=== PATIENT | male | born 1960 | race Caucasian/White ===

== ENCOUNTER 2021-06-05 20:14 | Emergency (ER) | payer BC, SELFPAY ==
--- NOTE | ~2021-06-05 | CT_ITS ---
EXAMINATION: CT HEAD WITHOUT CONTRAST CLINICAL INFORMATION: Headache. COMPARISON: None TECHNIQUE: Contiguous axial imaging was performed from the skull base to vertex without intravenous administration of contrast. This CT examination was performed using dose optimization techniques as appropriate, variously including the following: *Automated exposure control *Adjustment of mA and/or kV according to patient size (this includes techniques or standardized protocols for targeted exams where dose is matched to indication/reason for exam; i.e. extremities or head) *Use of iterative reconstruction technique DLP: 808 mGy-cm FINDINGS: There is no evidence of acute intracranial hemorrhage or territorial infarction. No abnormal mass effect or midline shift is seen. Villagran to white matter differentiation is well preserved. No extra-axial fluid collections are identified. The ventricles are normal in size. There is no abnormal attenuation within the brain parenchyma. The osseous structures and soft tissues are normal. Mucoperiosteal thickening of the paranasal sinuses. The mastoids are clear. CT/CT head/brain wo con IMPRESSION: No acute intracranial pathology.
[2021-06-05 21:12] VITALS: BP 136/96; BP 144/91; PULSE 86; PULSE 94; RESP 16; TEMP 36.7; O2SAT 96; BMI 33.7
--- NOTE | 2021-06-05 23:25 | PC.NURSE ---
pt resting in bed with no distress at this time.
--- NOTE | 2021-06-05 23:39 | ED.HA ---
HPI - Headache General Chief Complaint: Headache Stated Complaint: migraine x4 days Time Seen by Provider: 06/05/21 23:30 History of Present Illness HPI Narrative: Patient is 61 years old presents today with headache that is been ongoing for the last 4 days. It is dull in discontinuous is not associated with any fever. Patient did have some nausea. No coughing or congestion or upper respiratory symptoms. Patient had COVID back in April. Headache is excruciating. No focal weakness. No changes in vision. Patient from home. Not on any medication currently. Related Data Previous Rx's Medication Instructions Recorded ibuprofen 400 mg tablet 400 mg PO Q6H PRN #20 tab 06/06/21 ondansetron HCl 4 mg tablet 4 mg PO Q8H PRN #10 tab 06/06/21 (Zofran) Allergies Allergy/AdvReac Type Severity Reaction Status Date / Time No Known Allergies Allergy Verified 06/05/21 21:18 Review of Systems Review of Systems: Positive headache No vomiting No nausea Positive generalized malaise Yes all other systems are reviewed and are negative [facility] Past Medical History Attestation statement: The following information was validated with the patient. Medical History (Updated 06/06/21 @ 01:03 by Marianna Lincoln MD) [facility] Social History Social History Alcohol intake: current Alcohol intake frequency: holidays/special occasions only Patient Tobacco Use Status: Never used Tobacco Use of substances other than those prescribed or required for medical reasons: No Advance Directives: No Advance Directives Information Provided: Yes Physical Exam Vital Signs: Vital Signs: Last Vital Signs Temp 98.2 F 06/05/21 23:57 Pulse 84 06/05/21 23:57 Resp 16 06/05/21 23:57 BP 110/61 06/05/21 23:57 Pulse Ox 98 06/05/21 23:57 Body Mass Index 33.7 Appearance: Alert. Oriented X3. No acute distress. Eyes: Pupils equal, round and reactive to light. ENT: Pharynx normal. Neck: Normal inspection. Neck supple. No lymph nodes noted. No crepitus CVS: Normal heart rate and rhythm. Pulses normal. Normal S1 and S2 Respiratory: No respiratory distress. Breath sounds normal. No Wheezing. No rales Abdomen: Soft and nontender. No rigidity. No distention. good BS x4 Skin: Skin warm and dry. Normal skin color. Normal skin turgor. Extremities: No lower extremity edema. Neurovascular intact to all extremities. No Lacerations. No Rash Neuro: Oriented X 3. No motor deficit. No sensory deficit. Moving all extermities. No slurred speech MDM - Headache MDM Narrative Medical decision making narrative: CT head was negative for any acute evidence of bleeding or mass. Patient's sed rate less than 20. He is 61 years old unlikely secondary to temporal arteritis. Patient given migraine treatment including Reglan, Toradol, Benadryl with good relief of patient's symptoms. Will discharge patient home. In stable condition. No fever no chills no signs of meningitis. Medical Records Attestation: I reviewed the patient's medical records. Lab Data Attestation: I reviewed the patient's lab results. Result diagrams: 06/05/21 23:53 06/05/21 23:53 Labs: Lab Results 06/05/21 06/05/21 06/05/21 Range/Units 23:53 23:53 23:53 WBC 5.1 (4.8-10.8) X10*3/uL RBC 4.99 (4.60-5.80) X10*6/uL Hgb 16.4 (14.0-18.0) g/dl Hct 46.6 (42-52) % MCV 93.4 (80-98) fL MCH 32.9 (27.0-33.0) pg MCHC 35.2 (31.0-36.0) g/dl RDW 12.1 (11.0-16.0) % Plt Count 203 (160-400) X10*3/uL MPV 8.8 L (9.4-12.4) fL Immature Gran % (Auto) 0.2 (0.0-0.4) % Neut % (Auto) 50.7 (45-73) % Lymph % (Auto) 35.2 (20-40) % Island % (Auto) 10.5 (2-11) % Eos % (Auto) 3.0 (0-4) % Baso % (Auto) 0.4 (0-2) % Lymph # (Auto) 1.8 (1.2-4.9) X10*3/uL Island # (Auto) 0.5 (0.1-1.2) X10*3/uL Eos # (Auto) 0.2 (0.0-0.4) X10*3/uL Baso # (Auto) 0.0 (0.0-0.2) X10*3/uL Abs Immat Gran (auto) 0.01 (0.00-0.03) X10*3/uL Absolute Neuts (auto) 2.6 (2.0-8.3) X10*3/uL Absolute Nucleated RBC 0.000 (0.0-0.012) X10*3/uL Nucleated RBC % (auto) 0.0 (0.0-0.2) /100WBC ESR 16 H (0-15) MM/HR Sodium 136 (135-145) mmol/L Potassium 4.5 (3.3-5.1) mmol/L Chloride 99 (96-108) mmol/L Carbon Dioxide 29 (22-29) mmol/L Anion Gap 13 (12-20) BUN 13 (9-16) mg/dL Creatinine 0.98 (0.5-1.4) mg/dL Estim Creat Clear Calc 98.0 Estimated GFR > 60 Random Glucose 101 (60-115) mg/dL Calcium 9.8 (8.4-10.2) mg/dL Total Bilirubin 0.8 (0.0-1.0) mg/dL Direct Bilirubin 0.3 (0.0-0.5) mg/dL AST 36 (5-37) U/L ALT 57 H (0-40) U/L Alkaline Phosphatase 64 (39-117) U/L Total Protein 7.9 (6.5-8.0) g/dL Albumin 4.5 (3.5-5.0) g/dL Discharge Plan Discharge Clinical Impression: Migraine Patient Disposition: Home, Self-Care Instructions: Migraine Headache (ED) Prescriptions: New ondansetron HCl [Zofran] 4 mg tablet 4 mg PO Q8H PRN (Reason: nausea and vomiting) Qty: 10 RF: 0 ibuprofen 400 mg tablet 400 mg PO Q6H PRN (Reason: pain) Qty: 20 RF: 0 Referrals: Physician,None [Primary Care Provider] - 2 days
[2021-06-05 23:57] VITALS: BP 110/61; PULSE 84; RESP 16; TEMP 36.8; O2SAT 98
[2021-06-05] MEDS: Metoclopramide HCl 10 MG/2 ML VIAL IVPUSH (23:57)
[2021-06-05] MEDS: diphenhydrAMINE HCL 50 MG/ML VIAL 25 MG IVPUSH (23:57)
[2021-06-05] MEDS: Ketorolac Tromethamine 30 MG/ML VIAL IVPUSH (23:57)
[2021-06-05] MEDS: ondansetron HCL 4 MG/2 ML VIAL IVPUSH (23:57)
[2021-06-06] LABS: Basophils Percent Auto 0.4 % (0-2); Eosinophils Absolute Auto 0.2 X10*3/uL (0.0-0.4); Hematocrit 46.6 % (42-52); Hemoglobin 16.4 g/dl (14.0-18.0); Imm Gran Abs Auto 0.01 X10*3/uL (0.00-0.03); Imm Gran Pct Auto 0.2 % (0.0-0.4); Lymphocytes Absolute Auto 1.8 X10*3/uL (1.2-4.9); Lymphocytes Percent Auto 35.2 % (20-40); MANUAL DIFF FLAG NO; Mean Corpuscular HGB Conc 35.2 g/dl (31.0-36.0); Mean Corpuscular Hemoglobin 32.9 pg (27.0-33.0); Mean Corpuscular Volume 93.4 fL (80-98); Mean Platelet Volume 8.8 fL (9.4-12.4); Monocytes Absolute Auto 0.5 X10*3/uL (0.1-1.2); Monocytes Percent Auto 10.5 % (2-11); Neutrophils Absolute Auto 2.6 X10*3/uL (2.0-8.3); Neutrophils Percent Auto 50.7 % (45-73); Platelet Count 203 X10*3/uL (160-400); Red Blood Count 4.99 X10*6/uL (4.60-5.80); Red Cell Distribution Width 12.1 % (11.0-16.0); White Blood Count 5.1 X10*3/uL (4.8-10.8)
[2021-06-06 00:23] LABS: Alanine Aminotransferase 57 U/L (0-40); Albumin Level 4.5 g/dL (3.5-5.0); Alkaline Phosphatase 64 U/L (39-117); Anion Gap 13 (12-20); Aspartate Amino Transferase 36 U/L (5-37); Bilirubin Direct 0.3 mg/dL (0.0-0.5); Bilirubin Total 0.8 mg/dL (0.0-1.0); Blood Urea Nitrogen 13 mg/dL (9-16); Calcium 9.8 mg/dL (8.4-10.2); Carbon Dioxide 29 mmol/L (22-29); Chloride 99 mmol/L (96-108); Estimated Glomerular Filt Rate > 60; Glucose Random 101 mg/dL (60-115); Potassium 4.5 mmol/L (3.3-5.1); Sodium 136 mmol/L (135-145); Total Protein 7.9 g/dL (6.5-8.0)
[2021-06-06 00:38] LABS: Erythrocyte Sedimentation Rate 16 MM/HR (0-15)
[2021-06-06 01:46] VITALS: BP 143/77; PULSE 82; RESP 16; TEMP 36.8; O2SAT 99
== END 2021-06-06 01:48 | disposition home or self-care (01) ==
PROVIDERS: Emergency Provider Emergency Medicine Emergency Medical Services
DX: G43.909 Migraine, unspecified, not intractable, without status migrainosus (principal); Z79.899 Other long term (current) drug therapy
CPT/HCPCS: 36415; 70450; 80048; 80076; 85025; 85652; 96374; 96375; 99284; J1200; J1885; J2405; J2765

== ENCOUNTER 2023-01-05 13:02 | Inpatient (IN) | payer BC, SELFPAY ==
--- NOTE | ~2023-01-05 | US_ITS ---
EXAMINATION: US ABDOMEN LIMITED CLINICAL INFORMATION: Right upper quadrant pain. COMPARISON: None available. TECHNIQUE: Real-time imaging of the right upper quadrant abdominal viscera. FINDINGS: PANCREAS: Obscured by overlying bowel gas LIVER: Normal. The liver is normal in size. The liver contour is normal. There is diffuse increased liver parenchymal echogenicity, consistent with hepatic steatosis. No focal hepatic lesion. There is no intrahepatic biliary duct dilatation seen. GALLBLADDER: Gallbladder is physiologically distended with echogenic bile with multiple gallstones noted. There is pericholecystic fluid. Positive sonographic White's sign. The gallbladder wall is thickened measuring 5 mm. COMMON BILE DUCT: Common bile duct is enlarged measuring 1.2 cm with a possible distal obstructing stone measuring 10 mm. RIGHT KIDNEY: Normal. No hydronephrosis. No renal calculi or focal parenchymal lesions. The kidney measures 13.4 cm in maximum dimension. FREE FLUID: None. US/US abdomen limited IMPRESSION: * Findings consistent with acute cholecystitis. * Common bile duct is enlarged measuring 1.2 cm with a possible distal obstructing stone measuring 10 mm. This may reflect choledocholithiasis.
--- NOTE | ~2023-01-05 | FL_ITS ---
EXAMINATION: XR FLUOROSCOPY WITH IMAGES CLINICAL INFORMATION: Cholecystitis. COMPARISON: Previous abdominal ultrasound 01/05/2023. TECHNIQUE: Fluoroscopy Supervised By: Amado. Fluoroscopy Time: 87 seconds. Cumulative Dose: 48 mGy-cm Images: 8. FINDINGS: T-tube cholangiogram performed through the cystic duct. There is intrahepatic and extrahepatic biliary duct dilatation. There is caliber change in the distal common bile duct in the head of the pancreas. There is an outpouching of the distal common bile duct just superior to the main pancreatic duct. There is question of a small filling defect that could represent a stone seen on image 6 only. Correlation with real-time fluoroscopy recommended. Visualized main pancreatic duct is normal. FL/FL guidance in OR IMPRESSION: Fluoroscopy guidance for cholangiogram. Dilated intra and extrahepatic bile ducts. Fixed narrowing of the distal common bile duct in the head of the pancreas and focal outpouching just superior to the main pancreatic duct. It is difficult to exclude a small filling defect in the distal common bile duct and correlation with real-time fluoroscopy recommended. Follow-up MR of the liver/pancreas with IV contrast and MRCP recommended.
[2023-01-05 13:05] VITALS: BP 118/75; PULSE 116; RESP 18; TEMP 36.6; O2SAT 98; BMI 33.7
--- NOTE | 2023-01-05 13:06 | ED.ABDPAIN ---
HPI - Abdominal Pain General Chief Complaint: Abdominal Pain <ANEESH Durham - Last Filed: 01/05/23 13:08> Stated Complaint: bad cramps, trouble breathing, no appetite <ANEESH Durham - Last Filed: 01/05/23 13:08> Time Seen by Provider: 01/05/23 16:17 <ANEESH Durham - Last Filed: 01/05/23 13:08> Source: patient, RN notes reviewed and old records reviewed <Pedro Pablo Bess - Last Filed: 01/05/23 19:39> Mode of arrival: ambulatory <Pedro Pablo Bess - Last Filed: 01/05/23 19:39> Limitations: no limitations <Pedro Pablo Bess - Last Filed: 01/05/23 19:39> History of Present Illness HPI narrative: 62-year-old male who denies any past medical history presents for evaluation of abdominal pain and nausea. Patient reports that she eating his lunch 3 days ago he vomited back up He reports since then he has had abdominal cramps, dry heaving and fatigue Currently he has 5/10 upper abdominal pain. Denies any history of abdominal surgeries He reports chills but no fevers at home He reports a positive COVID contact at work He denies any chest pain, shortness of breath but does endorse cough <Pedro Pablo Bess - Last Filed: 01/05/23 19:39> Related Data Home Medications: Previous Rx's Medication Instructions Recorded ibuprofen 400 mg tablet 400 mg PO Q6H PRN pain #20 tabs 06/06/21 ondansetron HCl 4 mg tablet 4 mg PO Q8H PRN nausea and 06/06/21 (Zofran) vomiting #10 tabs <ANEESH Durham - Last Filed: 01/05/23 13:08> Allergies/Adverse Reactions: Allergies Allergy/AdvReac Type Severity Reaction Status Date / Time No Known Allergies Allergy Verified 06/05/21 21:18 <ANEESH Durham Last Filed: 01/05/23 13:08> Review of Systems Constitutional: Reports as per HPI, Reports chills, Denies fever(s), Denies headache(s) and Reports malaise <Pedro Pablo Bess - Last Filed: 01/05/23 19:39> Denies headache(s) <Pedro Pablo Bess - Last Filed: 01/05/23 19:39> Cardiovascular: Denies chest pain and Denies dyspnea <Pedro Pablo Bess - Last Filed: 01/05/23 19:39> Respiratory: Reports cough and Denies dyspnea <Pedro Pablo Bess - Last Filed: 01/05/23 19:39> Gastrointestinal: Reports abdominal pain, Denies constipation, Reports nausea and Reports vomiting <Pedro Pablo Bess - Last Filed: 01/05/23 19:39> Genitourinary: Denies difficulty urinating and Denies dysuria <Pedro Pablo Bess - Last Filed: 01/05/23 19:39> Denies headache(s) and Denies focal weakness <Pedro Pablo Bess - Last Filed: 01/05/23 19:39> PMF Past Medical History Medical History: Medical History (Updated 01/05/23 @ 19:00 by Pedro Pablo Bess) Torn meniscus <ANEESH Durham - Last Filed: 01/05/23 13:08> Social History Social History: Social History Alcohol intake: never Patient Tobacco Use Status: Never used Tobacco Smoked in Last 30 Days: No Use of substances other than those prescribed or required for medical reasons: No Advance Directives: No Advance Directives Information Provided: Yes <ANEESH Durham - Last Filed: 01/05/23 13:08> Physical Exam ED Vital Signs: Vital Signs - 24 hr 01/05/23 13:05 01/05/23 18:07 01/05/23 19:18 Temperature 98 F 101.5 F H 98.3 F Pulse Rate 116 H 89 87 Respiratory Rate 18 16 18 Blood Pressure 118/75 136/79 140/78 H Pulse Oximetry 98 95 98 Oxygen Delivery Method Room Air Room Air Room Air BMI result Body Mass Index 33.7 <ANEESH Durham - Last Filed: 01/05/23 13:08> Vital Signs - 24 hr 01/05/23 13:05 01/05/23 18:07 05/03/23 19:18 Temperature 98 F 101.5 F H 98.3 F Pulse Rate 116 H 89 87 Respiratory Rate 18 16 18 Blood Pressure 118/75 136/79 140/78 H Pulse Oximetry 98 95 98 Oxygen Delivery Method Room Air Room Air Room Air BMI result Body Mass Index 33.7 <Pedro Pablo Last Filed: 01/05/23 19:39> Const General: healthy appearing, comfortable, no acute distress, alert and awake < Last Filed: 01/05/23 19:39> Nutritional Appearance: well nourished < Last Filed: 01/05/23 19:39> Orientation/consciousness: patient oriented x3 < Last Filed: 01/05/23 19:39> HENMT Head: Yes normocephalic and Yes atraumatic < Last Filed: 01/05/23 19:39> Eyes Eyelids: Yes eyelids normal < Last Filed: 01/05/23 19:39> Conjunctivae: conjunctivae normal < Last Filed: 01/05/23 19:39> Sclerae: sclerae normal < Last Filed: 01/05/23 19:39> Corneas: corneas normal < Last Filed: 01/05/23 19:39> Pupils: Equal, round and reactive pupils present < Last Filed: 01/05/23 19:39> EOM: EOMs intact bilaterally < Last Filed: 01/05/23 19:39> Neck Neck: Yes full ROM < Last Filed: 01/05/23 19:39> Resp Effort & Inspection: normal respiratory effort, able to speak in complete sentences, no audible wheezes and not labored < Last Filed: 01/05/23 19:39> Auscultation: clear to auscultation bilaterally < Last Filed: 01/05/23 19:39> Cardio Rate: regular rate <Pedro Pablo Bess Last Filed: 01/05/23 19:39> Rhythm: regular rhythm <Pedro Pablojuanita Bess Last Filed: 01/05/23 19:39> GI Inspection: No Abdominal wall edema and No distended <Pedro Pablojuanita Cervantes Last Filed: 01/05/23 19:39> Palpation (GI): Soft to palpation, not firm, Tenderness to palpation present (GI) in the RUQ (Diffusely tender but guarding only in the right upper quadrant), Guarding due to palpation present (GI) and not rigid <Pedro Pablo Bess - Last Filed: 01/05/23 19:39> Auscultation: normoactive bowel sounds <Pedro Pablojuanita Bess Last Filed: 01/05/23 19:39> Skin General skin exam: no rashes or lesions noted and elasticity normal <Pedro Pablo OAbram - Last Filed: 01/05/23 19:39> Neuro General: patient oriented x3 <Pedro Pablojuanita Bess Last Filed: 01/05/23 19:39> Cranial nerves: Yes Equal, round and reactive pupils present and Yes Bilaterally intact EOM present <Pedro Pablo Bess Last Filed: 01/05/23 19:39> Cognition (Neuro): normal cognition <Pedro Pablo Bess Last Filed: 01/05/23 19:39> Extrem Other: Moving all extremities well without any obvious deformities <Pedro Pablo Bess Last Filed: 01/05/23 19:39> Course Course Course Narrative: This is an RME: Additional HPI, ROS, PE not included below will be deferred to primary provider. 62-year-old male presents with fatigue, malaise, nausea, cramps in my gut , inability to sleep times a week and half, patient reports he had URI symptoms last week which have since resolved and now he is having abdominal symptoms. Denies difficulty urinating However states decreased urinary stream. PE benign. Patient slightly tachycardic however appears anxious. Plan at this time labs, urine, viral test <ANEESH Durham - Last Filed: 01/05/23 13:08> Reevaluation(s) Reevaluation #1: Patient spiked a temperature. I added blood cultures and a lactate as well as acetaminophen for the fever. Still awaiting ultrasound of the gallbladder <Pedro Pablo Cervantesy - Last Filed: 01/05/23 19:39> Time: 18:31 <Pedro Pablo GabiAntoniay - Last Filed: 01/05/23 19:39> Reevaluation #2: Gallbladder ultrasound shows acute cholecystitis. Discussed with the on-call surgeon, Dr. Vaughan who will admit the patient. I ordered Zosyn and IV fluids. <Pedro Pablo GabiEdithSpartanburg - Last Filed: 01/05/23 19:39> Time: 18:58 <Pedro Pablo AshleyMaximino - Last Filed: 01/05/23 19:39> Medical Decision Making Medical Decision Making MDM Narrative: 62-year-old male presents for evaluation of abdominal pain, nausea and vomiting after eating on Tuesday. His labs are remarkable for T bili of 1.9 and he is to the right upper quadrant. Will start with ultrasound of gallbladder. Patient reports his pain is currently under control so we will hold any analgesia at this time. He was given IV fluids and Zofran. She has no leukocytosis, is possible that he just has a GI virus <Pedro Pablo AshleyAntoniay - Last Filed: 01/05/23 19:39> Differential Diagnosis Cholelithiasis Acute cholecystitis Gastroenteritis Acute abdominal pain Viral syndrome <Pedro Pablo SchmidtSpartanburg - Last Filed: 01/05/23 19:39> Lab Data Result Diagrams: 01/05/23 13:14 01/05/23 13:15 <ANEESH Durham - Last Filed: 01/05/23 13:08> Labs: Lab Results 01/05/23 01/05/23 01/05/23 Range/Units 13:14 13:14 13:14 WBC 6.5 (4.8-10.8) X10*3/uL RBC 4.76 (4.60-5.80) X10*6/uL Hgb 15.3 (14.0-18.0) g/dl Hct 43.1 (42.0-52.0) % MCV 90.5 (80.0-98.0) fL MCH 32.1 (27.0-33.0) pg MCHC 35.5 (31.0-36.0) g/dl RDW 11.6 (11.0-16.0) % Plt Count 159 L (160-400) X10*3/uL MPV 9.0 L (9.4-12.4) fL Immature Gran % (Auto) 0.5 H (0.0-0.4) % Neut % (Auto) 87.6 H (45-73) % Lymph % (Auto) 6.5 L (20-40) % [place] % (Auto) 4.6 (2-11) % Eos % (Auto) 0.6 (0-4) % Baso % (Auto) 0.2 (0-2) % Lymph # (Auto) 0.4 L (1.2-4.9) X10*3/uL [place] # (Auto) 0.3 (0.1-1.2) X10*3/uL Eos # (Auto) 0.0 (0.0-0.4) X10*3/uL Baso # (Auto) 0.0 (0.0-0.2) X10*3/uL Abs Immat Gran (auto) 0.03 (0.00-0.03) X10*3/uL Absolute Neuts (auto) 5.7 (2.0-8.3) x10*3/uL Absolute Nucleated RBC 0.000 (0.0-0.012) X10*3/uL Nucleated RBC % (auto) 0.0 (0.0-0.2) /100WBC PT (10.0-13.1) SEC INR (0.9-1.1) APTT (26.0-36.4) SEC Sodium (135-145) mmol/L Potassium (3.3-5.1) mmol/L Chloride (96-108) mmol/L Carbon Dioxide (22-29) mmol/L Anion Gap (12-20) BUN (9-16) mg/dL Creatinine (0.5-1.4) mg/dL Estim Creat Clear Calc Estimated GFR Random Glucose (60-115) mg/dL Calcium (8.4-10.2) mg/dL Magnesium (1.6-2.6) mg/dL Total Bilirubin (0.0-1.0) mg/dL AST (5-37) U/L ALT (0-40) U/L Alkaline Phosphatase (39-117) U/L Total Protein (6.5-8.0) g/dL Albumin (3.5-5.0) g/dL Lipase (8-78) U/L Urine Color Urine Appearance Urine pH (5.0-9.0) Ur Specific [place] (1.005-1.025) Urine Protein (Neg-Trace) mg/dL Urine Glucose (UA) (Negative) mg/dL Urine Ketones (Negative) mg/dL Urine Blood (Negative) Urine Nitrite (Negative) Ur Leukocyte Esterase (Negative) Urine RBC (0-2) /HPF Urine WBC (0-5) /HPF Ur Squamous Epith Cells (0-2) /HPF Urine Bacteria (None Seen) Hyaline Casts (0-2) /LPF COVID-19 (LILLIANA) Negative (Negative) COVID-19 Clin Com See Note Influenza Type A (ANDRÉS) Negative (Negative) Influenza Type B (ANDRÉS) Negative (Negative) Influenza A & B Note See Note 01/05/23 01/05/23 01/05/23 Range/Units 13:15 18:39 18:59 WBC (4.8-10.8) X10*3/uL RBC (4.60-5.80) X10*6/uL Hgb (14.0-18.0) g/dl Hct (42.0-52.0) % MCV (80.0-98.0) fL MCH (27.0-33.0) pg MCHC (31.0-36.0) g/dl RDW (11.0-16.0) % Plt Count (160-400) X10*3/uL MPV (9.4-12.4) fL Immature Gran % (Auto) (0.0-0.4) % Neut % (Auto) (45-73) % Lymph % (Auto) (20-40) % [place] % (Auto) (2-11) % Eos % (Auto) (0-4) % Baso % (Auto) (0-2) % Lymph # (Auto) (1.2-4.9) X10*3/uL [place] # (Auto) (0.1-1.2) X10*3/uL Eos # (Auto) (0.0-0.4) X10*3/uL Baso # (Auto) (0.0-0.2) X10*3/uL Abs Immat Gran (auto) (0.00-0.03) X10*3/uL Absolute Neuts (auto) (2.0-8.3) x10*3/uL Absolute Nucleated RBC (0.0-0.012) X10*3/uL Nucleated RBC % (auto) (0.0-0.2) /100WBC PT 12.1 (10.0-13.1) SEC INR 1.1 (0.9-1.1) APTT 29.8 (26.0-36.4) SEC Sodium 136 (135-145) mmol/L Potassium 4.1 (3.3-5.1) mmol/L Chloride 103 (96-108) mmol/L Carbon Dioxide 24 (22-29) mmol/L Anion Gap 13 (12-20) BUN 24 H (9-16) mg/dL Creatinine 0.94 (0.5-1.4) mg/dL Estim Creat Clear Calc 100.8 Estimated GFR > 60 Random Glucose 139 H (60-115) mg/dL Calcium 8.5 D (8.4-10.2) mg/dL Magnesium 2.3 (1.6-2.6) mg/dL Total Bilirubin 1.9 H (0.0-1.0) mg/dL AST 22 (5-37) U/L ALT 25 (0-40) U/L Alkaline Phosphatase 74 (39-117) U/L Total Protein 6.9 (6.5-8.0) g/dL Albumin 3.8 (3.5-5.0) g/dL Lipase 13 (8-78) U/L Urine Color Dark Yellow Urine Appearance Clear Urine pH 7.5 (5.0-9.0) Ur Specific [place] 1.025 (1.005-1.025) Urine Protein 100 (2+) H (Neg-Trace) mg/dL Urine Glucose (UA) Negative (Negative) mg/dL Urine Ketones Trace (Negative) mg/dL Urine Blood Negative (Negative) Urine Nitrite Negative (Negative) Ur Leukocyte Esterase Trace H (Negative) Urine RBC 3-5 H (0-2) /HPF Urine WBC 0-5 (0-5) /HPF Ur Squamous Epith Cells 0-2 (0-2) /HPF Urine Bacteria None Seen (None Seen) Hyaline Casts 0-2 (0-2) /LPF COVID-19 (LILLIANA) (Negative) COVID-19 Clin Com Influenza Type A (ANDRÉS) (Negative) Influenza Type B (ANDRÉS) (Negative) Influenza A & B Note <ANEESH Durham - Last Filed: 01/05/23 13:08> Lab Results 01/05/23 01/05/23 01/05/23 Range/Units 13:14 13:14 13:14 WBC 6.5 (4.8-10.8) X10*3/uL RBC 4.76 (4.60-5.80) X10*6/uL Hgb 15.3 (14.0-18.0) g/dl Hct 43.1 (42.0-52.0) % MCV 90.5 (80.0-98.0) fL MCH 32.1 (27.0-33.0) pg MCHC 35.5 (31.0-36.0) g/dl RDW 11.6 (11.0-16.0) % Plt Count 159 L (160-400) X10*3/uL MPV 9.0 L (9.4-12.4) fL Immature Gran % (Auto) 0.5 H (0.0-0.4) % Neut % (Auto) 87.6 H (45-73) % Lymph % (Auto) 6.5 L (20-40) % [place] % (Auto) 4.6 (2-11) % Eos % (Auto) 0.6 (0-4) % Baso % (Auto) 0.2 (0-2) % Lymph # (Auto) 0.4 L (1.2-4.9) X10*3/uL [place] # (Auto) 0.3 (0.1-1.2) X10*3/uL Eos # (Auto) 0.0 (0.0-0.4) X10*3/uL Baso # (Auto) 0.0 (0.0-0.2) X10*3/uL Abs Immat Gran (auto) 0.03 (0.00-0.03) X10*3/uL Absolute Neuts (auto) 5.7 (2.0-8.3) x10*3/uL Absolute Nucleated RBC 0.000 (0.0-0.012) X10*3/uL Nucleated RBC % (auto) 0.0 (0.0-0.2) /100WBC PT (10.0-13.1) SEC INR (0.9-1.1) APTT (26.0-36.4) SEC Sodium (135-145) mmol/L Potassium (3.3-5.1) mmol/L Chloride (96-108) mmol/L Carbon Dioxide (22-29) mmol/L Anion Gap (12-20) BUN (9-16) mg/dL Creatinine (0.5-1.4) mg/dL Estim Creat Clear Calc Estimated GFR Random Glucose (60-115) mg/dL Calcium (8.4-10.2) mg/dL Magnesium (1.6-2.6) mg/dL Total Bilirubin (0.0-1.0) mg/dL AST (5-37) U/L ALT (0-40) U/L Alkaline Phosphatase (39-117) U/L Total Protein (6.5-8.0) g/dL Albumin (3.5-5.0) g/dL Lipase (8-78) U/L Urine Color Urine Appearance Urine pH (5.0-9.0) Ur Specific [place] (1.005-1.025) Urine Protein (Neg-Trace) mg/dL Urine Glucose (UA) (Negative) mg/dL Urine Ketones (Negative) mg/dL Urine Blood (Negative) Urine Nitrite (Negative) Ur Leukocyte Esterase (Negative) Urine RBC (0-2) /HPF Urine WBC (0-5) /HPF Ur Squamous Epith Cells (0-2) /HPF Urine Bacteria (None Seen) Hyaline Casts (0-2) /LPF COVID-19 (LILLIANA) Negative (Negative) COVID-19 Clin Com See Note Influenza Type A (ANDRÉS) Negative (Negative) Influenza Type B (ANDRÉS) Negative (Negative) Influenza A & B Note See Note 01/05/23 01/05/23 01/05/23 Range/Units 13:15 18:39 18:59 WBC (4.8-10.8) X10*3/uL RBC (4.60-5.80) X10*6/uL Hgb (14.0-18.0) g/dl Hct (42.0-52.0) % MCV (80.0-98.0) fL MCH (27.0-33.0) pg MCHC (31.0-36.0) g/dl RDW (11.0-16.0) % Plt Count (160-400) X10*3/uL MPV (9.4-12.4) fL Immature Gran % (Auto) (0.0-0.4) % Neut % (Auto) (45-73) % Lymph % (Auto) (20-40) % [place] % (Auto) (2-11) % Eos % (Auto) (0-4) % Baso % (Auto) (0-2) % Lymph # (Auto) (1.2-4.9) X10*3/uL [place] # (Auto) (0.1-1.2) X10*3/uL Eos # (Auto) (0.0-0.4) X10*3/uL Baso # (Auto) (0.0-0.2) X10*3/uL Abs Immat Gran (auto) (0.00-0.03) X10*3/uL Absolute Neuts (auto) (2.0-8.3) x10*3/uL Absolute Nucleated RBC (0.0-0.012) X10*3/uL Nucleated RBC % (auto) (0.0-0.2) /100WBC PT 12.1 (10.0-13.1) SEC INR 1.1 (0.9-1.1) APTT 29.8 (26.0-36.4) SEC Sodium 136 (135-145) mmol/L Potassium 4.1 (3.3-5.1) mmol/L Chloride 103 (96-108) mmol/L Carbon Dioxide 24 (22-29) mmol/L Anion Gap 13 (12-20) BUN 24 H (9-16) mg/dL Creatinine 0.94 (0.5-1.4) mg/dL Estim Creat Clear Calc 100.8 Estimated GFR > 60 Random Glucose 139 H (60-115) mg/dL Calcium 8.5 D (8.4-10.2) mg/dL Magnesium 2.3 (1.6-2.6) mg/dL Total Bilirubin 1.9 H (0.0-1.0) mg/dL AST 22 (5-37) U/L ALT 25 (0-40) U/L Alkaline Phosphatase 74 (39-117) U/L Total Protein 6.9 (6.5-8.0) g/dL Albumin 3.8 (3.5-5.0) g/dL Lipase 13 (8-78) U/L Urine Color Dark Yellow Urine Appearance Clear Urine pH 7.5 (5.0-9.0) Ur Specific [place] 1.025 (1.005-1.025) Urine Protein 100 (2+) H (Neg-Trace) mg/dL Urine Glucose (UA) Negative (Negative) mg/dL Urine Ketones Trace (Negative) mg/dL Urine Blood Negative (Negative) Urine Nitrite Negative (Negative) Ur Leukocyte Esterase Trace H (Negative) Urine RBC 3-5 H (0-2) /HPF Urine WBC 0-5 (0-5) /HPF Ur Squamous Epith Cells 0-2 (0-2) /HPF Urine Bacteria None Seen (None Seen) Hyaline Casts 0-2 (0-2) /LPF COVID-19 (LILLIANA) (Negative) COVID-19 Clin Com Influenza Type A (ANDRÉS) (Negative) Influenza Type B (ANDRÉS) (Negative) Influenza A & B Note <Pedro Pablo Bess - Last Filed: 01/05/23 19:39> Medications Administered Generic Name Dose Route Start Last Admin Trade Name Freq PRN Reason Stop Dose Admin Sodium Chloride 1,000 mls @ 999 mls/hr 01/05/23 19:00 01/05/23 19:29 Ns IV 01/05/23 20:00 999 mls/hr .Q1H1M NIKO Administration Discontinued Medications Generic Name Dose Route Start Last Admin Trade Name Freq PRN Reason Stop Dose Admin Acetaminophen 975 mg 01/05/23 18:26 01/05/23 18:36 Acetaminophen 325 Mg Tablet PO 01/05/23 18:27 975 mg ONCE ONE Administration Sodium Chloride 1,000 mls @ 999 mls/hr 01/05/23 16:30 01/05/23 18:35 Ns IV 01/05/23 17:30 Infused .Q1H1M NIKO Infusion Piperacillin Sod/Tazobactam 50 mls @ 100 mls/hr 01/05/23 18:45 01/05/23 19:28 Sod 3.375 gm/ Sodium Chloride IV 01/05/23 19:14 100 mls/hr ONCE ONE Administration Ondansetron HCl 4 mg 01/05/23 16:26 01/05/23 17:00 Ondansetron Hcl 4 Mg/2 Ml Vial IVPUSH 01/05/23 16:27 4 mg ONCE ONE Administration <ANEESH Durham - Last Filed: 01/05/23 13:08> Medications Administered Generic Name Dose Route Start Last Admin Trade Name Freq PRN Reason Stop Dose Admin Sodium Chloride 1,000 mls @ 999 mls/hr 01/05/23 19:00 01/05/23 19:29 Ns IV 01/05/23 20:00 999 mls/hr .Q1H1M NIKO Administration Discontinued Medications Generic Name Dose Route Start Last Admin Trade Name Freq PRN Reason Stop Dose Admin Acetaminophen 975 mg 01/05/23 18:26 01/05/23 18:36 Acetaminophen 325 Mg Tablet PO 01/05/23 18:27 975 mg ONCE ONE Administration Sodium Chloride 1,000 mls @ 999 mls/hr 01/05/23 16:30 01/05/23 18:35 Ns IV 01/05/23 17:30 Infused .Q1H1M NIKO Infusion Piperacillin Sod/Tazobactam 50 mls @ 100 mls/hr 01/05/23 18:45 01/05/23 19:28 Sod 3.375 gm/ Sodium Chloride IV 01/05/23 19:14 100 mls/hr ONCE ONE Administration Ondansetron HCl 4 mg 01/05/23 16:26 01/05/23 17:00 Ondansetron Hcl 4 Mg/2 Ml Vial IVPUSH 01/05/23 16:27 4 mg ONCE ONE Administration <Pedro Pablo Bess - Last Filed: 01/05/23 19:39> Discharge Plan Discharge Clinical Impression: Acute calculous cholecystitis <ANEESH Durham - Last Filed: 01/05/23 13:08> Patient Disposition: Admitted As Inpatient <ANEESH Durham - Last Filed: 01/05/23 13:08>
[2023-01-05 13:21] LABS: MANUAL DIFF FLAG NO
[2023-01-05 13:23] LABS: Basophils Percent Auto 0.2 % (0-2); Eosinophils Percent Auto 0.6 % (0-4); Hematocrit 43.1 % (42.0-52.0); Hemoglobin 15.3 g/dl (14.0-18.0); Imm Gran Abs Auto 0.03 X10*3/uL (0.00-0.03); Imm Gran Pct Auto 0.5 % (0.0-0.4); Lymphocytes Absolute Auto 0.4 X10*3/uL (1.2-4.9); Lymphocytes Percent Auto 6.5 % (20-40); Mean Corpuscular HGB Conc 35.5 g/dl (31.0-36.0); Mean Corpuscular Hemoglobin 32.1 pg (27.0-33.0); Mean Corpuscular Volume 90.5 fL (80.0-98.0); Monocytes Absolute Auto 0.3 X10*3/uL (0.1-1.2); Monocytes Percent Auto 4.6 % (2-11); Neutrophils Absolute Auto 5.7 x10*3/uL (2.0-8.3); Neutrophils Percent Auto 87.6 % (45-73); Platelet Count 159 X10*3/uL (160-400); Red Blood Count 4.76 X10*6/uL (4.60-5.80); Red Cell Distribution Width 11.6 % (11.0-16.0); White Blood Count 6.5 X10*3/uL (4.8-10.8)
[2023-01-05 13:49] LABS: Alanine Aminotransferase 25 U/L (0-40); Albumin Level 3.8 g/dL (3.5-5.0); Alkaline Phosphatase 74 U/L (39-117); Anion Gap 13 (12-20); Aspartate Amino Transferase 22 U/L (5-37); Bilirubin Total 1.9 mg/dL (0.0-1.0); Blood Urea Nitrogen 24 mg/dL (9-16); Calcium 8.5 mg/dL (8.4-10.2); Carbon Dioxide 24 mmol/L (22-29); Chloride 103 mmol/L (96-108); Creatinine Clr Calc Pharmacy 100.8; Estimated Glomerular Filt Rate > 60; Glucose Random 139 mg/dL (60-115); Lipase 13 U/L (8-78); Magnesium 2.3 mg/dL (1.6-2.6); Potassium 4.1 mmol/L (3.3-5.1); Sodium 136 mmol/L (135-145); Total Protein 6.9 g/dL (6.5-8.0)
[2023-01-05 13:50] LABS: COVID-19 Test Negative (Negative); IDNOW Serial# 08D9AD1C
[2023-01-05 14:05] LABS: IDNOW Serial# 55D5AD1C; Influenza A Negative (Negative); Influenza B2 Negative (Negative)
[2023-01-05] MEDS: ondansetron HCL 4 MG/2 ML VIAL IVPUSH (17:00)
[2023-01-05] MEDS: 0.9 % Sodium Chloride 1,000 ML 999 ML IV ×2 (17:00→19:29)
--- NOTE | 2023-01-05 17:26 | PC.NURSE ---
Patient complaining of abdominal pain that started tuesday after lunch. Patient states that he hasn't eaten since tuesday due to the pain. Patient winces when right upper quadrant is palpated. Patient got IV and fluids are being administered now and patient was medicated with antinausea medication.
[2023-01-05 18:07] VITALS: BP 136/79; PULSE 89; RESP 16; TEMP 38.6; O2SAT 95
[2023-01-05] MEDS: Acetaminophen 325 MG TABLET 975 MG PO (18:36)
[2023-01-05 18:46] LABS: Appearance Urine Clear; Color Urine Dark Yellow; Glucose Urine UA Negative (Negative); Leukocyte Esterase Urine Trace (Negative); Nitrite Urine Negative (Negative); PH 7.5 (5.0-9.0); Specific Gravity - Urine 1.025 (1.005-1.025); UMIC TRIGGER UACC YES; Urine Blood Negative (Negative); Urine Ketones Trace mg/dL (Negative); Urine Protein 100 (2+) mg/dL (Neg-Trace)
[2023-01-05 18:51] LABS: Bacteria Urine None Seen (None Seen); Hyaline Casts Urine 0-2 /LPF (0-2); Squamous Epithelial Cell Urine 0-2 /HPF (0-2); WBC Urine 0-5 /HPF (0-5)
--- NOTE | 2023-01-05 19:00 | ECG_ITS ---
Test Reason : ABD PAIN Blood Pressure : / mmHG Vent. Rate : 087 BPM Atrial Rate : 087 BPM P-R Int : 176 ms QRS Dur : 078 ms QT Int : 354 ms P-R-T Axes : 056 -01 -06 degrees QTc Int : 425 ms Normal sinus rhythm Normal ECG No previous ECGs available Referred By: Pedro Pablo Bess Electronically Signed By:OLIMPIA SANTIAGO MD
[2023-01-05 19:18] VITALS: BP 140/78; PULSE 87; RESP 18; TEMP 36.8; O2SAT 98
[2023-01-05 19:25] LABS: INTERNATIONAL NORM RATIO 1.1 (0.9-1.1); Prothrombin Time 12.1 SEC (10.0-13.1)
[2023-01-05 19:28] LABS: Partial Thromboplastin Time 29.8 SEC (26.0-36.4)
[2023-01-05] MEDS: Piperacillin Sodium/Tazobactam 3.375 GM in 0.9 % Sodium Chloride 50 ML IV (19:28)
[2023-01-05 19:40] LABS: Lactic Acid 1.4 mmol/L (0.5-2.0)
--- NOTE | 2023-01-05 19:56 | PHA.MEDREC ---
Pharmacy Consult ? Medication Reconciliation Pharmacy has completed the medication reconciliation.
[2023-01-05] MEDS: 0.9 % Sodium Chloride 1,000 ML 100 ML IVCONT (20:38)
--- NOTE | 2023-01-05 22:29 | PC.NURSE ---
Attempted to call report at 22:29. [employer] Consultant reported nurse is not there yet. Stated she will call back when the nurse gets in. Pt will be transported within a half hour if no call has been returned.
[2023-01-05 23:44] VITALS: BP 121/59; PULSE 98; RESP 20; TEMP 38.5; O2SAT 95
[2023-01-06] VITALS (13 sets, daily range): BP systolic 117–166; BP diastolic 56–79; PULSE 69–95; RESP 16–25; TEMP 37.1–39.1; O2SAT 93–100; BMI 33.5
[2023-01-06] MEDS: Piperacillin Sodium/Tazobactam 3.375 GM in 0.9 % Sodium Chloride 50 ML IV ×4 (01:22→18:15)
--- NOTE | 2023-01-06 06:54 | P.HPGS_ITS ---
History of Present Illness History of Present Illness Date of Service: 01/06/23 Chief complaint: Abd pain Narrative: Pablo Zuniga is a 62 year old male who has been having abdo pain and nause adn vomiting for the last 4 days. Last week he wasnt feeling well- feeling more run down no fever no GI issues but missed 2 days of work. Then tuesday after eating some chicken for lunch he bagan to feel ill, abdo pain and then some significant dry heaves and vomiting. This went on until Tuesday and he felt dehydrated and tried drinking some gatorade. Pain got a little better and nause and tried to see if he would get better at home but then by yesterday felt week and dehydrated so came to the ER. w/u here with tender RUQ, elevated tbili at 1.9 normal wbc but temp was 101. U/s showed signs of cholecystitis with thickened GB and dilated duct to 1.6cm. Pt being admitted for cholecystitis and choledocholithiasis. Review of Systems Review of Systems: Yes all other systems are reviewed and are negative [facility] Past Medical History Medical History (Updated 01/05/23 @ 19:00 by Pedro Pablo Bess) [facility] Social History Social History Household Members: None Housing: Apartment Do you presently have visiting nurse or other home services: No Alcohol intake: never Patient Tobacco Use Status: Never used Tobacco Smoked in Last 30 Days: No Second Hand Smoke Exposure: No Use of substances other than those prescribed or required for medical reasons: No Currently Displaying Signs/Symptoms of Drug Intoxication Withdrawal: No Any prior treatment program specific to substance use: No Have you been hit, kicked, punched, or otherwise hurt by someone within the past year? If so, by whom?: No Do you feel safe in your current relationship?: No Current Relationship Is there a partner from a previous relationship who is making you feel unsafe now?: No Are you made to feel afraid or neglected: No Advance Directives: No Advance Directives Information Provided: Yes Advance Directives on File: No Do you have thoughts of harming others: None Do you have a plan to hurt others: No Plan Recently lost weight without trying: No Eating poorly because of decreased appetite: Yes Nutrition Risks: No Nutritional Risk Poor oral hygiene: No Travel History Ebola Risk: Travel/Contact With Anyone From Affected Area/s: No Meds Allergies Allergy/AdvReac Type Severity Reaction Status Date / Time No Known Allergies Allergy Verified 06/05/21 21:18 Active Medications: Current Medications Sodium Chloride (Ns) 1,000 mls @ 100 mls/hr IVCONT .Q10H [facility] Last Infusion: 01/06/23 06:35 Dose: 0 mls/hr Piperacillin Sod/Tazobactam (Sod 3.375 gm/ Sodium Chloride) 50 mls @ 100 mls/hr IV Q6H [facility] Last Admin: 01/06/23 06:32 Dose: 100 mls/hr Morphine Sulfate (Morphine Sulfate 4 Mg/Ml Cartridge) 3 mg IVPUSH 6XD PRN; Protocol PRN Reason: Pain, Severe (Pain Scale 7-10) Ondansetron HCl (Ondansetron Hcl 4 Mg/2 Ml Vial) 4 mg IVPUSH Q8H PRN PRN Reason: Nausea and Vomiting Sodium Chloride (0.9 % Sodium Chloride Flush 3 Ml Syringe) 3 ml IVFLUSH QSHIFT [facility] Last Admin: 01/06/23 06:53 Dose: Not Given Home Medications Medication Instructions Recorded Confirmed Last Taken Type No Known Home Meds 01/05/23 01/05/23 Unknown History Physical Exam Vital Signs: Vital Signs: Last Vital Signs Temp 99.7 F 01/06/23 03:54 Pulse 90 01/06/23 03:54 Resp 18 01/06/23 03:54 BP 126/60 01/06/23 03:54 Pulse Ox 93 01/06/23 03:54 O2 Del Method Room Air 01/06/23 03:54 BMI result Body Mass Index 33.5 Const: General: cooperative and in distress mild Nutritional Appearance: well nourished Orientation/consciousness: oriented to person, oriented to place and oriented to time HEENT: Other: nonicteric Head: Yes normal to inspection Resp: Effort & Inspection: normal respiratory effort Auscultation: clear to auscultation bilaterally Cardio: Rate: regular rate Rhythm: regular rhythm GI: Other: abdo large and round soft, guarding in ruq area no peritoneal signs active bowel sounds : General: Yes no CVA tenderness Back/Spine/Pelvis: Back: no CVA tenderness Skin: General skin exam: no jaundice Neuro: General: oriented to person, oriented to place and oriented to time Extrem: General: Yes normal to inspection Results Results Labs: Short CBC 01/05/23 Range/Units 13:14 WBC 6.5 (4.8-10.8) X10*3/uL Hgb 15.3 (14.0-18.0) g/dl Hct 43.1 (42.0-52.0) % Plt Count 159 L (160-400) X10*3/uL BMP 01/05/23 13:15 Sodium 136 Potassium 4.1 Chloride 103 Carbon Dioxide 24 BUN 24 H Creatinine 0.94 Calcium 8.5 D Liver Function 01/05/23 Range/Units 13:15 Total Bilirubin 1.9 H (0.0-1.0) mg/dL AST 22 (5-37) U/L ALT 25 (0-40) U/L Alkaline Phosphatase 74 (39-117) U/L Albumin 3.8 (3.5-5.0) g/dL Urine 01/05/23 Range/Units 18:39 Urine Color Dark Yellow Urine Appearance Clear Urine pH 7.5 (5.0-9.0) Ur Specific [place] 1.025 (1.005-1.025) Urine Protein 100 (2+) H (Neg-Trace) mg/dL Urine Glucose (UA) Negative (Negative) mg/dL Abdominal ultrasound report/results: report reviewed Assessment and Plan (1) Acute calculous cholecystitis: Status: Acute Plan 62 year old male with probable cholecystitis but possible CBD stone - duct large on imaging and eleated tbili - plan MRCP for today. keep npo, iv hydration, repeat labs in am cover with iv Zosyn if CBD stone then get ERCP and then eventual lap hemant Pt understands and agrees with the plan Time Spent With Patient Time: Total time managing care of this patient today ____ minutes. Quality Stroke Does the patient have a stroke diagnosis?: No VTE Prior VTE?: No VTE Risk Level:: Surgical - low VTE Device Contraindication: N/A - Device Ordered VTE Drug Contraindication: N/A - Med Ordered Procedures Date of Service Date of Service: 01/06/23
[2023-01-06 06:55] LABS: Hematocrit 36.7 % (42.0-52.0); Hemoglobin 12.8 g/dl (14.0-18.0); Mean Corpuscular HGB Conc 34.9 g/dl (31.0-36.0); Mean Corpuscular Hemoglobin 32.2 pg (27.0-33.0); Mean Corpuscular Volume 92.4 fL (80.0-98.0); Mean Platelet Volume 9.8 fL (9.4-12.4); Platelet Count 130 X10*3/uL (160-400); Red Blood Count 3.97 X10*6/uL (4.60-5.80); Red Cell Distribution Width 11.6 % (11.0-16.0); White Blood Count 7.4 X10*3/uL (4.8-10.8)
[2023-01-06 07:28] LABS: Alanine Aminotransferase 33 U/L (0-40); Alkaline Phosphatase 68 U/L (39-117); Anion Gap 14 (12-20); Aspartate Amino Transferase 30 U/L (5-37); Bilirubin Total 1.8 mg/dL (0.0-1.0); Blood Urea Nitrogen 19 mg/dL (9-16); Calcium 7.4 mg/dL (8.4-10.2); Carbon Dioxide 21 mmol/L (22-29); Chloride 106 mmol/L (96-108); Creatinine Clr Calc Pharmacy 103.9; Estimated Glomerular Filt Rate > 60; Glucose Random 123 mg/dL (60-115); Potassium 3.7 mmol/L (3.3-5.1); Sodium 137 mmol/L (135-145); Total Protein 5.4 g/dL (6.5-8.0)
--- NOTE | 2023-01-06 11:13 | HO.ANESPROP2 ---
[facility] Active Problems Active Problems: All Active Problems (Updated 01/05/23 @ 19:00 by Pedro Pablo Bess) Acute calculous cholecystitis (Acute) Past Medical History Medical History (Updated 01/05/23 @ 19:00 by Pedro Pablo Bess) Sania blanton Family History Family history of problems with anesthesia: No Surgical History History of Problems with Anesthesia: No Social History Social History Household Members: None Housing: Apartment Do you presently have visiting nurse or other home services: No Alcohol intake: never Patient Tobacco Use Status: Never used Tobacco Smoked in Last 30 Days: No Second Hand Smoke Exposure: No Use of substances other than those prescribed or required for medical reasons: No Currently Displaying Signs/Symptoms of Drug Intoxication Withdrawal: No Any prior treatment program specific to substance use: No Have you been hit, kicked, punched, or otherwise hurt by someone within the past year? If so, by whom?: No Do you feel safe in your current relationship?: No Current Relationship Is there a partner from a previous relationship who is making you feel unsafe now?: No Are you made to feel afraid or neglected: No Are you DNR?: No Advance Directives: No Advance Directives Information Provided: Yes Advance Directives on File: No Do you have thoughts of harming others: None Do you have a plan to hurt others: No Plan Recently lost weight without trying: No Eating poorly because of decreased appetite: Yes Nutrition Risks: No Nutritional Risk Poor oral hygiene: No Meds Allergies Allergy/AdvReac Type Severity Reaction Status Date / Time No Known Allergies Allergy Verified 06/05/21 21:18 Active Medications: Current Medications Sodium Chloride (Ns) 1,000 mls @ 100 mls/hr IVCONT .Q10H [facility] Last Infusion: 01/06/23 07:45 Dose: Infused Piperacillin Sod/Tazobactam (Sod 3.375 gm/ Sodium Chloride) 50 mls @ 100 mls/hr IV Q6H [facility] Last Infusion: 01/06/23 07:02 Dose: Infused Morphine Sulfate (Morphine Sulfate 4 Mg/Ml Cartridge) 3 mg IVPUSH 6XD PRN; Protocol PRN Reason: Pain, Severe (Pain Scale 7-10) Ondansetron HCl (Ondansetron Hcl 4 Mg/2 Ml Vial) 4 mg IVPUSH Q8H PRN PRN Reason: Nausea and Vomiting Sodium Chloride (0.9 % Sodium Chloride Flush 3 Ml Syringe) [facility] Last Admin: 01/06/23 06:53 Dose: Not Given Home Medications Medication Instructions Recorded Confirmed Last Taken Type No Known Home Meds 01/05/23 01/05/23 Unknown History Exam Exam Date and Time: January 06, 2023 1113 Height,Weight and Vital Signs: Height 5 ft 10 in Weight 106 kg Last Vital Signs Temp 99.1 F 01/06/23 10:51 Pulse 81 01/06/23 10:51 Resp 18 01/06/23 10:51 BP 138/75 01/06/23 10:51 Pulse Ox 94 01/06/23 07:54 O2 Del Method Room Air 01/06/23 07:54 Pertinent Lab Results Pertinent Lab Results: Laboratory Tests 01/05/23 01/05/23 01/05/23 13:14 13:14 13:14 WBC 6.5 RBC 4.76 Hgb 15.3 Hct 43.1 MCV 90.5 MCH 32.1 MCHC 35.5 RDW 11.6 Plt Count 159 L MPV 9.0 L Immature Gran % (Auto) 0.5 H Neut % (Auto) 87.6 H Lymph % (Auto) 6.5 L [place] % (Auto) 4.6 Eos % (Auto) 0.6 Baso % (Auto) 0.2 Lymph # (Auto) 0.4 L [place] # (Auto) 0.3 Eos # (Auto) 0.0 Baso # (Auto) 0.0 Abs Immat Gran (auto) 0.03 Absolute Neuts (auto) 5.7 Absolute Nucleated RBC 0.000 Nucleated RBC % (auto) 0.0 PT INR APTT Sodium Potassium Chloride Carbon Dioxide Anion Gap BUN Creatinine Estim Creat Clear Calc Estimated GFR Random Glucose Lactic Acid Calcium Magnesium Total Bilirubin AST ALT Alkaline Phosphatase Total Protein Albumin Lipase Urine Color Urine Appearance Urine pH Ur Specific [place] Urine Protein Urine Glucose (UA) Urine Ketones Urine Blood Urine Nitrite Ur Leukocyte Esterase Urine RBC Urine WBC Ur Squamous Epith Cells Urine Bacteria Hyaline Casts COVID-19 (LILLIANA) Negative COVID-19 Clin Com See Note Influenza Type A (ANDRÉS) Negative Influenza Type B (ANDRÉS) Negative Influenza A & B Note See Note Blood Type Antibody Screen 01/05/23 01/05/23 01/05/23 13:15 18:39 18:58 WBC RBC Hgb Hct MCV MCH MCHC RDW Plt Count MPV Immature Gran % (Auto) Neut % (Auto) Lymph % (Auto) [place] % (Auto) Eos % (Auto) Baso % (Auto) Lymph # (Auto) [place] # (Auto) Eos # (Auto) Baso # (Auto) Abs Immat Gran (auto) Absolute Neuts (auto) Absolute Nucleated RBC Nucleated RBC % (auto) PT INR APTT Sodium 136 Potassium 4.1 Chloride 103 Carbon Dioxide 24 Anion Gap 13 BUN 24 H Creatinine 0.94 Estim Creat Clear Calc 100.8 Estimated GFR > 60 Random Glucose 139 H Lactic Acid Calcium 8.5 D Magnesium 2.3 Total Bilirubin 1.9 H AST 22 ALT 25 Alkaline Phosphatase 74 Total Protein 6.9 Albumin 3.8 Lipase 13 Urine Color Dark Yellow Urine Appearance Clear Urine pH 7.5 Ur Specific [place] 1.025 Urine Protein 100 (2+) H Urine Glucose (UA) Negative Urine Ketones Trace Urine Blood Negative Urine Nitrite Negative Ur Leukocyte Esterase Trace H Urine RBC 3-5 H Urine WBC 0-5 Ur Squamous Epith Cells 0-2 Urine Bacteria None Seen Hyaline Casts 0-2 COVID-19 (LILLIANA) COVID-19 Clin Com Influenza Type A (ANDRÉS) Influenza Type B (ANDRÉS) Influenza A & B Note Blood Type O Positive Antibody Screen NEGATIVE 01/05/23 01/05/23 01/06/23 18:59 18:59 05:20 WBC RBC Hgb Hct MCV MCH MCHC RDW Plt Count MPV Immature Gran % (Auto) Neut % (Auto) Lymph % (Auto) [place] % (Auto) Eos % (Auto) Baso % (Auto) Lymph # (Auto) [place] # (Auto) Eos # (Auto) Baso # (Auto) Abs Immat Gran (auto) Absolute Neuts (auto) Absolute Nucleated RBC Nucleated RBC % (auto) PT 12.1 INR 1.1 APTT 29.8 Sodium 137 Potassium 3.7 Chloride 106 Carbon Dioxide 21 L Anion Gap 14 BUN 19 H Creatinine 0.91 Estim Creat Clear Calc 103.9 Estimated GFR > 60 Random Glucose 123 H Lactic Acid 1.4 Calcium 7.4 L D Magnesium Total Bilirubin 1.8 H AST 30 ALT 33 Alkaline Phosphatase 68 Total Protein 5.4 L Albumin 3.0 L Lipase Urine Color Urine Appearance Urine pH Ur Specific [place] Urine Protein Urine Glucose (UA) Urine Ketones Urine Blood Urine Nitrite Ur Leukocyte Esterase Urine RBC Urine WBC Ur Squamous Epith Cells Urine Bacteria Hyaline Casts COVID-19 (LILLIANA) COVID-19 Clin Com Influenza Type A (ANDRÉS) Influenza Type B (ANDRÉS) Influenza A & B Note Blood Type Antibody Screen 01/06/23 05:20 WBC 7.4 RBC 3.97 L Hgb 12.8 L Hct 36.7 L MCV 92.4 MCH 32.2 MCHC 34.9 RDW 11.6 Plt Count 130 L MPV 9.8 Immature Gran % (Auto) Neut % (Auto) Lymph % (Auto) [place] % (Auto) Eos % (Auto) Baso % (Auto) Lymph # (Auto) [place] # (Auto) Eos # (Auto) Baso # (Auto) Abs Immat Gran (auto) Absolute Neuts (auto) Absolute Nucleated RBC 0.000 Nucleated RBC % (auto) 0.0 PT INR APTT Sodium Potassium Chloride Carbon Dioxide Anion Gap BUN Creatinine Estim Creat Clear Calc Estimated GFR Random Glucose Lactic Acid Calcium Magnesium Total Bilirubin AST ALT Alkaline Phosphatase Total Protein Albumin Lipase Urine Color Urine Appearance Urine pH Ur Specific [place] Urine Protein Urine Glucose (UA) Urine Ketones Urine Blood Urine Nitrite Ur Leukocyte Esterase Urine RBC Urine WBC Ur Squamous Epith Cells Urine Bacteria Hyaline Casts COVID-19 (LILLIANA) COVID-19 Clin Com Influenza Type A (ANDRÉS) Influenza Type B (ANDRÉS) Influenza A & B Note Blood Type Antibody Screen Airway Mallampati Class: III TM Dist: >3cm Neck ROM: Full Assessment and Plan Assessment Anesthesia Assessment: Anesthesia Plan Discussed and Chart Reviewed Final Anesthetic Review Family History of Problems with Anesthesia: No History of Problems with Anesthesia: No NPO: Yes ASA Class: II and Emergency Final Preanesthetic Review: No Changes in Pt Med Stat, Meds/Allgs Chart Reviewed, Consent Obtained/Reviewed and Anes Risks/Benef Reviewed Patient Risk: Intermediate Procedure Risk: Intermediate Anesthetic Plan Anesthetic Plan: GA Disposition: Standard PACU
--- NOTE | 2023-01-06 14:26 | P.OP_ITS ---
Operative Note Operative Note Date of Service: 01/06/23 Narrative: Preoperative diagnosis: [] Acute cholecystitis Postop diagnosis: [] Acute phlegmonous , gangrenous cholecystitis Procedure [] laparoscopic cholecystectomy with cholangiogram, repair of incarcerated umbilical hernia Surgeon: [] Amado Inside Outside Sales Representative: [] Type of Anesthesia: [] General Indication for surgery: [] Patient has marked right upper quadrant pain and tenderness on exam. Very corpulent abdomen. Intraoperative findings demonstrated a possible phlegmonous gallbladder with dense omental and gastric adhesions to it. History intraoperative cholangiogram demonstrated free flow of contrast into the extrahepatic biliary system which was markedly dilated but no obvious filling defects were demonstrated. Patient had incidental finding of an incarcerated umbilical hernia which served as the camera port site at the umbilical incision. This was repaired primarily at completion of the procedure. Markedly intrahepatic thickened phlegmonous, gangrenous pus filled gallbladder. Morbid obesity. Findings: [] Patient brought to the operating room, placed on the operative table in a supine position, after adequate level of general anesthesia was dosed the massive corpulent abdomen was prepped and draped in usual sterile fashion. Using an infraumbilical curvilinear incision, this carried down through skin, subcutaneous tissue, or hernia sac was identified and dissected off the posterior aspect the umbilicus and dissected down to the fascia. Sac was opened were incarcerated omental contents as well as redundant sac were amputated using Bovie and Conley technique was used insufflated down the cavity to 15 mm of CO2 Upper midline and right subcostal costal ports were placed under direct laparoscopic few and the patient was placed in reverse Trendelenburg position, tilted to the left. Findings were as noted above. Gallbladder was initially decompressed with an aspirating device secondary to its marked turigidity. Abrahan pus was aspirated. Gallbladder was phlegmonous pre gangrenous and friable. With difficulty, it was grasped using laparoscopic graspers and retracted superiorly and laterally. Dense omental and gastric he is was swept off the gallbladder was hilum was approached. The cystic duct, bile duct junction was identified and a cholecyctodochotomy placed here and using Arrow catheter technique, cholangiogram performed with findings as noted above. The cystic duct and ar jenny were circumferentially dissected out, traced directly into the gallbladder, and critical view obtained. A long cystic duct was demonstrated and confirmed on cholangiogram and because of its significant size, this was not amenable to a clip and instead an Endo-JANET stapling device was used to transect the cystic duct. Cystic artery was uneventfully clipped proximally x2 distally , x1 and transected. The necrotic phlegmonous gallbladder was then dissected from the gallbladder fossa using Bovie. The specimen was placed in an Endo-Catch bag, a retrieved through the umbilical port. The abdominal cavity was very copiously irrigated and secured hemostasis. A Harris-Kaplan drain was left in gallbladder fossa and exited through the right lateral port. This was secured to the skin using 2-0 nylon. Remaining ports were removed under direct laparoscopic view, and wounds closed finding manner; umbilical wound which is the incidental site of the incarcerated umbilical hernia was closed primarily using 0 Vicryl sutures. Skin wounds were closed using subcuticular 4-0 Vicryl sutures followed by Steri-Strips and sterile dressings. Wounds reviewed treated 0.5 some argument epinephrine at completion. Sponge, needle, and instrument counts were reported to be correct. Patient tolerated the procedure well and emerged from anesthesia stable condition. EBL approximately 100 cc
[2023-01-06] MEDS: Acetaminophen 325 MG TABLET 650 MG PO (21:06)
[2023-01-06] MEDS: Melatonin 3 MG TABLET 6 MG PO (21:58)
[2023-01-07] VITALS (7 sets, daily range): BP systolic 112–140; BP diastolic 56–70; PULSE 68–73; RESP 18–20; TEMP 36.6–37.3; O2SAT 92–95
[2023-01-07] MEDS: Piperacillin Sodium/Tazobactam 3.375 GM in 0.9 % Sodium Chloride 50 ML IV ×4 (00:35→20:22)
[2023-01-07] MEDS: 0.9 % Sodium Chloride 1,000 ML 100 ML IVCONT (00:37)
[2023-01-07 07:21] LABS: Alanine Aminotransferase 96 U/L (0-40); Albumin Level 2.9 g/dL (3.5-5.0); Alkaline Phosphatase 61 U/L (39-117); Aspartate Amino Transferase 87 U/L (5-37); Bilirubin Direct 0.4 mg/dL (0.0-0.5); Total Protein 5.2 g/dL (6.5-8.0)
--- NOTE | 2023-01-07 08:26 | PM.PNGS ---
Subjective Subjective Date of Service: 01/07/23 Interval history: Feels ok this morning. Very sore at incisions. Tolerated applesauce last night. OOB to bathroom. Physical Exam Vital Signs: Vital Signs: Last Vital Signs Temp 98.3 F 01/07/23 07:43 Pulse 73 01/07/23 07:43 Resp 18 01/07/23 07:43 BP 112/56 L 01/07/23 07:43 Pulse Ox 93 01/07/23 07:43 O2 Del Method Room Air 01/07/23 07:43 O2 Flow Rate 2 01/06/23 14:40 BMI result Body Mass Index 33.5 Const: General: comfortable, no acute distress and alert Orientation/consciousness: patient oriented x3 Resp: Effort & Inspection: normal respiratory effort GI: Other: AKASH drain with serosanguineous output Inspection: No distended and Yes incision (dressings intact) Palpation (GI): Soft to palpation, Tenderness to palpation present (GI) (incisional, mild), no guarding and not rigid Percussion: Yes normal to percussion Skin: General skin exam: no rashes or lesions noted Neuro: General: patient oriented x3 and moves all extremities Objective Data Active Medications Acetaminophen (Acetaminophen 325 Mg Tablet) 650 mg PO Q6H PRN PRN Reason: Fever Last Admin: 01/06/23 21:06 Dose: 650 mg Documented By: GUANAKO Fentanyl (Fentanyl Citrate/Pf 100 Mcg/2 Ml Vial) 50 mcg IVPUSH Q5M PRN; Protocol PRN Reason: Pain, Severe (Pain Scale 7-10) Piperacillin Sod/Tazobactam (Sod 3.375 gm/ Sodium Chloride) 50 mls @ 100 mls/hr IV Q6H [facility] Last Infusion: 01/07/23 06:48 Dose: 0 mls/hr Documented By: GUANAKO Melatonin (Melatonin 3 Mg Tablet) 6 mg PO BEDTIME [facility] Last Admin: 01/06/23 21:58 Dose: 6 mg Documented By: GUANAKO Morphine Sulfate (Morphine Sulfate 4 Mg/Ml Cartridge) 3 mg IVPUSH 6XD PRN; Protocol PRN Reason: Pain, Severe (Pain Scale 7-10) Ondansetron HCl (Ondansetron Hcl 4 Mg/2 Ml Vial) 4 mg IVPUSH Q8H PRN PRN Reason: Nausea and Vomiting Ondansetron HCl (Ondansetron Hcl 4 Mg/2 Ml Vial) 4 mg IVPUSH ONCE PRN PRN Reason: Nausea and Vomiting Oxycodone HCl (Oxycodone Hcl Immed Release 5 Mg Tablet) 5 mg PO Q4H PRN PRN Reason: Pain, Moderate(Pain Scale 4-6) Oxycodone HCl (Oxycodone Hcl Immed Release 5 Mg Tablet) 10 mg PO Q4H PRN PRN Reason: Pain, Severe (Pain Scale 7-10) Sodium Chloride (0.9 % Sodium Chloride Flush 3 Ml Syringe) 3 ml IVFLUSH QSHIFT [facility] Last Admin: 01/06/23 20:03 Dose: Not Given Documented By: GUANAKO Non-Admin Reason: IV Running Labs 01/06/23 05:20 01/06/23 05:20 Labs: Laboratory Results - last 24 hr 01/07/23 05:29 Total Bilirubin 1.0 Direct Bilirubin 0.4 AST 87 H ALT 96 H Alkaline Phosphatase 61 Total Protein 5.2 L Albumin 2.9 L Microbiology Microbiology Results: Microbiology 01/05/23 18:59 Blood Culture - Preliminary Blood - Venous Gram negative davi 01/05/23 18:57 Blood Culture - Preliminary Blood - Venous Prelim: GNR Gram Stain only Procedures Date of Service Date of Service: 01/07/23 Progress Note: A&P Assessment and plan (1) Acute calculous cholecystitis: Status: Acute (2) S/P laparoscopic cholecystectomy: Status: Acute Plan 62 year old male admitted with acute cholecystitis, elevated bilirubin. He is POD #1 s/p lap CCY with IOC. Intraoperative findings demonstrated phlegmonous, gangrenous, pus filled gallbladder with dense omental and gastric adhesions.? Intraoperative cholangiogram demonstrated free flow of contrast into the extrahepatic biliary system which was markedly dilated but no obvious filling defects were demonstrated.? Bili has normalized this am. Patient doing fairly well post op. VSS. Abd exam benign with appropriate post op tenderness, intact dressings. AKASH drain nonbilious. Cont IV zosyn. Dc IVF. Diet as tolerated. Encouraged PO analgesics for preparation for dc. Encouraged OOB/ambulation and IS use. Likely home tomorrow with removal of AKASH drain tomorrow. Patient comfortable with plan. Time Spent With Patient Time: Total time managing care of this patient today ____ minutes. Quality Stroke Does the patient have a stroke diagnosis?: No VTE Prior VTE?: No VTE Risk Level:: Surgical - low VTE Device Contraindication: N/A - Device Ordered VTE Drug Contraindication: N/A - Med Ordered
--- NOTE | 2023-01-07 09:44 | MHC.CM.PN ---
PATIENT IS FULLY INDEPENDENT NO DME OR VNA SERVICES PATIENT EDUCATED ON IMPORTANCE OF HCP DOCUMENT. HE IS AWARE THAT CASE MANAGEMENT CAN ASSIST WITH COMPLETION IF HE DECIDES. AT THIS TIME, HE DENIES NEED PLAN IS FOR AKASH REMOVAL AND RETURN HOME ON TUESDAY PCP IS WITH [facility] IN [facility]. HIS PCP (DR FOWLER) RETIRED AND HE DOES NOT RECALL THE NAME OF HIS NEW PCP.
[2023-01-07] MEDS: oxyCODONE HCl Immed Release 5 MG TABLET PO (09:59)
--- NOTE | 2023-01-07 13:52 | HO.POSTANES ---
Post Anesthesia Evaluation Post Anesthesia Evaluation Vital Signs: Vital Signs Temp Pulse Resp BP Pulse Ox O2 Del Method 01/07/23 12:00 97.8 F 71 18 115/62 94 Room Air 01/07/23 11:15 94 Room Air 01/07/23 07:43 98.3 F 73 18 112/56 L 93 Room Air 01/07/23 06:30 99.1 F 01/07/23 04:00 98.7 F 68 19 135/60 94 Room Air Anesthesia: General Endotracheal-GETA Mental Status: Awake Pain Control: Satisfactory Nausea/Vomiting: None Hydration: Adequate Anesthesia-Related Issues: No Anes. Related Issues
[2023-01-07] MEDS: 0.9 % Sodium Chloride Flush 3 ML SYRINGE IVFLUSH ×2 (14:33→20:22)
[2023-01-07] MEDS: Melatonin 3 MG TABLET 6 MG PO (20:16)
[2023-01-07] MEDS: traZODone HCL 50 MG TABLET PO (21:28)
[2023-01-08] MEDS: Piperacillin Sodium/Tazobactam 3.375 GM in 0.9 % Sodium Chloride 50 ML IV ×2 (01:59→06:10)
[2023-01-08 07:51] VITALS: BP 132/72; PULSE 74; RESP 18; TEMP 36.9; O2SAT 97
--- NOTE | 2023-01-08 09:49 | PM.DS ---
DS: Providers Provider Date of Service: 01/05/23 Date of admission: 01/05/23 19:45 Date of discharge: 01/08/23 Primary care physician: Marilu Physician Attending physician on admission: Nicole Vaughan Attending physician on discharge: Brandon Fischer DS: Diagnosis Discharge Diagnosis (1) Acute calculous cholecystitis: Status: Acute (2) S/P laparoscopic cholecystectomy: Status: Acute DS: Summary Hospital Course Hospital Course: The pt is a 62 year old male who presented to the ER with abdominal pain and nausea and vomiting and fever - wbc normal and tbili elevated and CBD enlarged. Pt was taken to the OR for lap hemant and cholangiogram and it was noted that the GB was gangrenous and ductal systems were dilated but not obstructed. Surgery was done and pt was treated with antibx. By POD #2 tolerating light po diet and ambulating and doing well with po diet. Plan to dc home and fu in one week to see surgeon in office. No working or heavy lifting >5lbs this week and activity will increase on evaluation with surgery next week. Pt understands and agrees with this plan Status at Discharge Cognitive/behavioral status at discharge: good Time Spent with Patient Time attestation: Total time managing care of this patient today ____ minutes. Discharge coordination time: Less than 30 minutes Quality: Safe Use of Opioids Does Pt have an Active Cancer Diagnosis on the Problem List?: No Quality: Stroke Does the patient have a stroke diagnosis?: No Reason for No Anti-thrombotic at DC: Drug treatment not indicated Reason for No Anticoagulant at DC: Drug treatment not indicated Physical Exam Vital Signs: Vital Signs: Last Vital Signs Temp 98.5 F 01/08/23 07:51 Pulse 74 01/08/23 07:51 Resp 18 01/08/23 07:51 BP 132/72 01/08/23 07:51 Pulse Ox 97 01/08/23 07:51 O2 Del Method Room Air 01/08/23 07:51 O2 Flow Rate 2 01/06/23 14:40 BMI result Body Mass Index 33.5 GI: Other: abdomen is soft mild tenderness in ruq and otherwise looks good incisions clean DS: Data Data Completed and Pending Pending studies at discharge: Pending at discharge 01/06/23 13:49 Surgical [PTH] Routine Discharge Plan Discharge Anticipated Discharge Date/Time: 01/08/23 13:11 Patient Disposition: Home, Self-Care Discharge Diagnosis: acute cholecystitis s/p lap hemant Referrals: Physician,None [Primary Care Provider] - 1 Week Brandon Fischer MD [Physician] - 1 Week Discharge Medications: New docusate sodium [Colace] 100 mg capsule 100 mg PO BID Qty: 30 0RF oxycodone 5 mg tablet 5 mg PO Q4H PRN (Reason: pain (scale score 7-10)) Qty: 20 0RF Rx Instructions: Partial Fill upon patient request. Discharge Orders: Discharge Order (Routine); Ordered 01/08/23 Ordered By: Nicole Vaughan Diet: Low fat, low cholesterol Activity on Discharge: No heavy lifting Stand Alone Forms: Patient Portal Discharge page Activity Restrictions/Additional Instructions: Apply an ice pack for short intervals (20 minutes on, followed by at least 20 minutes off) for the first 2 days. Do not apply heat. Do not use creams, lotions, or topical antibiotics. These can cause infection or allergic reaction. Ok to shower 48 hours after your surgery. Remove dressings in 2 days and replace as needed. You have steri strips (small white cloth strips) covering your incision- these will fall off ~1 week. Follow up in office with Dr. Fischer in 1 week. ([phone]) No heavy lifting (>10lbs) or strenuous activity! Call Your Doctor If: -Your temperature exceeds 101.5? F -You experience excessive pain or swelling -You have an unexpected reaction to medication -You have excessive bleeding -You experience continued vomiting/nausea -Your incision begins to separate -Your incision shows signs of infection such as increased redness, swelling, excessive pain, drainage (light blood or clear fluid is normal) or heat Care Plan Goals: Return to baseline health and resume normal activities following recovery period. Health Concerns: acute cholecystitis elevated bilirubin Plan of Treatment: s/p laparoscopic cholecystectomy F/u in office with Dr. Fischer Assessment: Doing well post op
--- NOTE | 2023-01-08 12:29 | MHC.CM.PN ---
PT WILL DC HOME TODAY WITH NO SERVICES
== END 2023-01-08 12:28 | disposition home or self-care (01) | DRG 263 ==
LOC: HO.ED 19:00 → HO.EDOVER 19:53 → HO.S3 22:07
PROVIDERS: Physician Assistant; Surgery; Admitting Provider Surgery; Emergency Provider Internal Medicine; PCP Student in an Organized Health Care Education/Training Program; Visit Provider Surgery
PROC: 0FT44ZZ Resection of Gallbladder, Percutaneous Endoscopic Approach (ICD-10-PCS; CPT 47562; principal; 2023-01-06 10:40)
DX: K80.00 Calculus of gallbladder with acute cholecystitis without obstruction (principal); K42.0 Umbilical hernia with obstruction, without gangrene; K82.A1 Gangrene of gallbladder in cholecystitis; E66.01 Morbid (severe) obesity due to excess calories; Z68.33 Body mass index [BMI] 33.0-33.9, adult; Z20.822 Contact with and (suspected) exposure to COVID-19
CPT/HCPCS: 36415; 76705; 80053; 80076; 81001; 83605; 83690; 83735; 85025; 85027; 85610; 85730; 86850; 86900; 86901; 87040; 87077; 87186; 87205; 87502; 87635; 88302; 88304; 93005; 99285; C1726; J1100; J2250; J2405; J2543; J3010; Q9967

== ENCOUNTER → 2023-01-13 14:03 | Outpatient (BNVA) | payer BC, SELFPAY | PROVIDERS: Visit Provider Surgery ==

== ENCOUNTER → 2023-01-24 11:07 | Outpatient (BNVA) | payer BC, SELFPAY | PROVIDERS: Visit Provider Surgery ==

== ENCOUNTER 2023-01-25 14:35 | Inpatient (IN) | payer BC, SELFPAY ==
--- NOTE | ~2023-01-25 | CT_ITS ---
PROCEDURE: CT GUIDED ABSCESS DRAINAGE CLINICAL INFORMATION: Abscess in the gallbladder fossa postcholecystectomy. COMPARISON: Previous CT of the abdomen and pelvis from yesterday. TECHNIQUE: Procedure and risks and benefits including bleeding, infection and injury to the liver were discussed with the patient and informed consent was obtained. Limited axial images through the upper abdomen were performed. The right upper quadrant was prepped and draped in the usual sterile fashion. The skin and soft tissues were anesthetized with 1% lidocaine plain. Using CT guidance and a 5 Salvadorean Yueh needle, access to the fluid collection in the gallbladder fossa was obtained. Purulent fluid was aspirated. Over an 0.035 guidewire and following serial dilatation, an 8 Salvadorean drainage catheter was positioned in the collection. 120 mL of purulent-appearing followed by slightly bloody fluid was aspirated. Diagnostic specimen was sent for Gram stain and culture. Catheter was attached to bulb drainage. Patient received Versed 1 mg and fentanyl 75 mcg intravenously during the procedure. Conscious sedation was provided by registered nurse under my direction with continuous hemodynamic monitoring. Total [id number] sedation total contact time was [address] examination was performed using dose optimization techniques as appropriate, variously including the following: *Automated exposure control *Adjustment of mA and/or kV according to patient size (this includes techniques or standardized protocols for targeted exams where dose is matched to indication/reason for exam; i.e. extremities or head) *Use of iterative reconstruction technique DLP: 227 mGy-cm FINDINGS: There is a 5.5 cm fluid collection in the gallbladder fossa targeted for CT drainage. CT/CT guided drainage IMPRESSION: CT-guided 8 Salvadorean gallbladder fossa drain placement.
--- NOTE | ~2023-01-25 | CT_ITS ---
EXAMINATION: CT ABDOMEN AND PELVIS WITH CONTRAST CLINICAL INFORMATION: s/p gangrenous cholecystectomy COMPARISON: Ultrasound of the abdomen 01/05/2023 TECHNIQUE: Multidetector volumetric images were obtained from the superior aspect of the liver through the pubic symphysis following administration 85 mL of Omnipaque 350 intravenous contrast. Sagittal and coronal reformatted images were obtained on the technologist's workstation. Oral contrast: No This CT examination was performed using dose optimization techniques as appropriate, variously including the following: *Automated exposure control *Adjustment of mA and/or kV according to patient size (this includes techniques or standardized protocols for targeted exams where dose is matched to indication/reason for exam; i.e. extremities or head) *Use of iterative reconstruction technique DLP: 722 mGy-cm FINDINGS: LUNG BASES: The visualized lung bases are unremarkable. LIVER, GALLBLADDER, AND BILIARY TREE: History patient had prior cholecystectomy. Surgical clips in the right upper quadrant. There is a fluid collection at the gallbladder fossa which appears to communicate between the hepatic flexure of the colon and the gallbladder fossa. The wall of the hepatic flexure of the colon is thickened and edematous. There is stranding edema in the adjacent pericolonic fat. Fluid collection is a density measurement of 19 Hounsfield units, mildly complex fluid. Fluid collection measures approximately 6 cm in diameter. Fluid collection concerning for abscess. No rim-enhancing around this collection. No intrahepatic bile duct dilatation the extrahepatic CBD measures 1.2 cm. No calcified stone identified in the bile ducts. PANCREAS: Unremarkable. SPLEEN: Unremarkable. ADRENAL GLANDS: Unremarkable. KIDNEYS AND URETERS: Nonobstructive 2 mm stone lower pole the right kidney. No calculus in the left kidney. There is no hydronephrosis. There are no ureteral stones BLADDER: Unremarkable. GASTROINTESTINAL TRACT: As stated above there is thickening of the hepatic flexure of the colon with a complex fluid collection communication between the gallbladder fossa and the wall of the hepatic flexure of colon. Findings concerning for abscess. There is no air however within the fluid collection. There are scattered diverticula of the sigmoid colon. There is no diverticulitis. There is no bowel obstruction. There is a moderate volume of stool in the colon. The appendix is normal . The small bowel loops are unremarkable. The stomach is normal. There is no hiatal hernia. ABDOMINAL WALL: Small bilateral fat-containing inguinal hernia. LYMPH NODES: Normal. VASCULAR: Unremarkable. PELVIC VISCERA: Prostate measures 4.5 cm transverse. OSSEOUS STRUCTURES: Unremarkable. CT/CT abdomen pelvis w IV con IMPRESSION: 1. History patient had prior cholecystectomy. There is a fluid collection at the gallbladder fossa which appears to communicate between the hepatic flexure of the colon and the gallbladder fossa. Findings concerning for abscess. 2. Nonobstructive 2 mm stone lower pole right kidney. Fleischner guidelines were followed. This critical result was discussed with ANEESH Durham on 01/25/2023, 6:35 PM and it was ascertained that the content and urgency of the report was understood at the time of direct communication.
--- NOTE | ~2023-01-25 | XR_ITS ---
EXAMINATION: XR CHEST CLINICAL INFORMATION: Shortness of breath COMPARISON: None available. TECHNIQUE: Frontal view of the chest was obtained. FINDINGS: No significant abnormality is noted involving the heart, lungs, mediastinum, bony thorax or soft tissues. XR/XR chest 1V IMPRESSION: Unremarkable examination.
[2023-01-25 14:45] VITALS: BP 120/69; PULSE 93; RESP 20; TEMP 37.7; O2SAT 97; BMI 31.6
--- NOTE | 2023-01-25 14:48 | ED.NAVMDI ---
HPI - Nausea/Vomiting/Diarrhea General Chief complaint: Nausea/Vomiting/Diarrhea Stated complaint: Vomiting/Syncope Time Seen by Provider: 01/25/23 16:07 Source: patient Mode of arrival: ambulatory Limitations: no limitations History of Present Illness HPI Narrative: Patient is a 63 year old male status-post laparoscopic cholecystectomy on 01/06/2023 presenting with 2 week history of weakness, reported fever and chills and 2 day history of nausea/vomitting. He reports no PO intake in the past 48 hours secondary to vomitting twice yesterday and once this morning. Does report an episode of pre-syncope this morning after showering prompting his presentation to the emergency department. Endorses cough, reported 20lb weight loss since operation, fever, chills, nausea and vomitting. Denies abdominal pain, chest pain, shortness of breath, changes in bowel and urinary habits. Related Data Previous Rx's Medication Instructions Recorded docusate sodium 100 mg capsule 100 mg PO BID #30 caps 01/07/23 (Colace) Allergies Allergy/AdvReac Type Severity Reaction Status Date / Time No Known Allergies Allergy Verified 01/13/23 14:11 Review of Systems Review of Systems: Constitutional : + Weight loss, + Fever, + Chills, + Fatigue, + Malaise ENT/Mouth : No sore throat, No Rhinorrhea Eyes: No Eye Pain, No Swelling, No Redness Cardiovascular : No Chest Pain, No SOB, No Dyspnea on Exertion, No Orthopnea, No Edema, No Palpitations Respiratory : + Cough, No Sputum, No Wheezing Gastrointestinal : + Nausea, + Vomiting, No Diarrhea, No Constipation, + abdominal Pain, No Hematochezia, No Melena Genitourinary : No Dysuria, No Urinary Frequency, No Hematuria, Musculoskeletal : No joint pain, No Myalgias, No Joint Swelling Skin : No Skin Lesions, No rash Neuro : + Weakness, + Dizziness, No Numbness, No Dizziness, No Headache Psych : No Anxiety/Panic, No Depression All other systems reviewed and are negative Yes all other systems are reviewed and are negative [facility] Past Medical History Attestation statement: The following information was validated with the patient. Source: old records reviewed and nursing notes reviewed Medical History Torn meniscus Surgical History History of laparoscopic cholecystectomy (01/05/23) History of umbilical hernia repair (01/05/23) Social History Social History Household Members: None Housing: Apartment Do you presently have visiting nurse or other home services: No Alcohol intake: never Patient Tobacco Use Status: Never used Tobacco Second Hand Smoke Exposure: No Advance Directives: No Advance Directives Information Provided: No service: No Current occupational status: employed Physical Exam Vital Signs: Vital Signs: Last Vital Signs Temp 99.2 F 01/25/23 15:17 Pulse 91 01/25/23 15:17 Resp 31 H 01/25/23 15:17 BP 108/63 01/25/23 15:17 Pulse Ox 98 01/25/23 15:17 O2 Del Method Room Air 01/25/23 15:17 BMI result Body Mass Index 31.6 vss Appearance: Alert.? Oriented X3.? No acute distress.? Head: Normocephalic, atraumatic, no step-offs or deformities Eyes: Pupils equal, round and reactive to light.? CVS: Normal heart rate and rhythm.? Pulses normal.? Respiratory: No respiratory distress.? Breath sounds normal.? Abdomen: Tenderness to palpation of right upper quadrant. Normal bowel sounds in all 4 quadrants. Abdomen soft and nondistended Skin: Skin warm and dry.? Normal skin color.? Normal skin turgor.? Extremities: No lower extremity edema.? No calf ttp. 5/5 strength to bilateral upper and lower extremities Neuro: Oriented X 3.? No motor deficit.? No sensory deficit. CN 2-12 intact Course Course Course Narrative: RME: 63-year-old male with a past medical history s/p laparoscopic cholecystectomy secondary to gangrenous necrotic cholecystitis on 01/06/23 presenting to the ED complaining of nausea, vomiting, and inability to tolerate p.o. times 10 days. Also reports SOB. Patient slumped over in a wheelchair, pale, diaphoretic Charge nurse aware, patient brought back in to main ED EKG, labs, lactic/blood cultures ordered Full HPI, ROS and PE to be performed by primary ED provider. Reevaluation(s) Reevaluation #1: Patients CBC appears to be around his baseline. Chemistry with no acute electrolyte abnormalities requiring intervention. Troponin negative, EKG non-ischemic, unlikely ACS. Chest xr unremarkable, lipase within normal limits. Pending CT scan and urine. Giving fentanyl for pain as patients pressures are soft and fluids for hydration. Time: 16:53 Reevaluation #2: UA without infection. CT of the abdomen and pelvis with history of prior cholecystectomy with fluid collection at the gallbladder fossa which appears to communicate between the hepatic flexure of the colon the gallbladder wall fossa concerning for abscess. I did cover patient with antibiotics and Zosyn. Giving him IV fluids. Consulted with surgery who came to evaluate him at the bedside and will admit to his service. Time: 20:45 Medications Administered Discontinued Medications Generic Name Dose Route Start Last Admin Trade Name Freq PRN Reason Stop Dose Admin Acetaminophen 650 mg 01/25/23 18:34 01/25/23 18:55 Acetaminophen 325 Mg Tablet PO 01/25/23 18:35 650 mg ONCE ONE Administration Fentanyl 25 mcg 01/25/23 16:23 01/25/23 17:43 Fentanyl Citrate/Pf 100 Mcg/2 Ml Vial IVPUSH 01/25/23 16:24 25 mcg ONCE ONE Administration Protocol Sodium Chloride 1,000 mls @ 999 mls/hr 01/25/23 15:00 01/25/23 16:00 Ns IV 01/25/23 16:00 Infused .Q1H1M NIKO Infusion Sodium Chloride 1,000 mls @ 999 mls/hr 01/25/23 16:15 01/25/23 17:46 Ns IV 01/25/23 17:15 999 mls/hr .Q1H1M NIKO Administration Piperacillin Sod/Tazobactam 50 mls @ 100 mls/hr 01/25/23 18:34 01/25/23 18:56 Sod 3.375 gm/ Sodium Chloride IV 01/25/23 19:03 100 mls/hr ONCE ONE Administration Iohexol 100 ml 01/25/23 16:31 01/25/23 16:32 Iohexol 350 Mg/Ml 100 Ml Infus..Btl IV 01/25/23 16:32 85 ml ONCE ONE Administration Ondansetron HCl 4 mg 01/25/23 16:11 01/25/23 17:44 Ondansetron Hcl 4 Mg/2 Ml Vial IVPUSH 01/25/23 16:12 4 mg ONCE ONE Administration Medical Decision Making Medical Decision Making [facility] Narrative: 1622 Patient is a 63 year old male status post laparoscopic cholecystectomy on 01/06/2023 presenting with 2 days of nausea/vomitting, weakness and decreased PO intake. Physical Exam: Significant for Tenderness to palpation of right upper quadrant. Normal bowel sounds in all 4 quadrants. Abdomen soft and nondistended [place] for post-operative complication including abscess. Other differentials less likely include ABO, LBO, post-op ileus, colitis, gastritis. Unlikely acute abdomen. Will rule out metabolic disturbances and electrolyte abnormalities Plan labs, urine, imaging. Will likely need to consult surgery for input Differential Diagnosis Differential Diagnoses: The differential diagnosis associated with the presentation includes [place] for post-operative complication including abscess. Other differentials less likely include ABO, LBO, post-op ileus, colitis, gastritis. Unlikely acute abdomen. Will rule out metabolic disturbances and electrolyte abnormalities Admission/Observation Consideration of admission/observation: Escalation of care including admission/observation considered possible Lab Data [facility] Lab Attestation statement: I reviewed the patient's lab results. 01/25/23 15:43 01/25/23 15:43 Labs: Lab Results 01/25/23 01/25/23 01/25/23 Range/Units 15:43 15:43 15:43 WBC 8.9 (4.8-10.8) X10*3/uL RBC 3.92 L (4.60-5.80) X10*6/uL Hgb 12.4 L (14.0-18.0) g/dl Hct 35.5 L (42.0-52.0) % MCV 90.6 (80.0-98.0) fL MCH 31.6 (27.0-33.0) pg MCHC 34.9 (31.0-36.0) g/dl RDW 11.5 (11.0-16.0) % Plt Count 231 D (160-400) X10*3/uL MPV 8.7 L (9.4-12.4) fL Immature Gran % (Auto) 0.3 (0.0-0.4) % Neut % (Auto) 84.9 H (45-73) % Lymph % (Auto) 8.0 L (20-40) % [place] % (Auto) 6.5 (2-11) % Eos % (Auto) 0.1 (0-4) % Baso % (Auto) 0.2 (0-2) % Lymph # (Auto) 0.7 L (1.2-4.9) X10*3/uL [place] # (Auto) 0.6 (0.1-1.2) X10*3/uL Eos # (Auto) 0.0 (0.0-0.4) X10*3/uL Baso # (Auto) 0.0 (0.0-0.2) X10*3/uL Abs Immat Gran (auto) 0.03 (0.00-0.03) X10*3/uL Absolute Neuts (auto) 7.6 (2.0-8.3) x10*3/uL Absolute Nucleated RBC 0.000 (0.0-0.012) X10*3/uL Nucleated RBC % (auto) 0.0 (0.0-0.2) /100WBC PT 15.8 H (10.0-13.1) SEC INR 1.4 H (0.9-1.1) Sodium 134 L (135-145) mmol/L Potassium 4.0 (3.3-5.1) mmol/L Chloride 102 (96-108) mmol/L Carbon Dioxide 21 L (22-29) mmol/L Anion Gap 15 (12-20) BUN 14 (9-16) mg/dL Creatinine 0.95 (0.5-1.4) mg/dL Estim Creat Clear Calc 95.4 Estimated GFR > 60 Random Glucose 132 H (60-115) mg/dL Lactic Acid (0.5-2.0) mmol/L Calcium 8.7 D (8.4-10.2) mg/dL Magnesium 2.1 (1.6-2.6) mg/dL Total Bilirubin 1.3 H (0.0-1.0) mg/dL Direct Bilirubin 0.4 (0.0-0.5) mg/dL AST 44 H (5-37) U/L ALT 90 H (0-40) U/L Alkaline Phosphatase 102 (39-117) U/L Troponin I High Sens (<3.5-35.0) ng/L Total Protein 7.3 (6.5-8.0) g/dL Albumin 3.5 (3.5-5.0) g/dL Lipase 24 (8-78) U/L Urine Color Urine Appearance Urine pH (5.0-9.0) Ur Specific [place] (1.005-1.025) Urine Protein (Neg-Trace) mg/dL Urine Glucose (UA) (Negative) mg/dL Urine Ketones (Negative) mg/dL Urine Blood (Negative) Urine Nitrite (Negative) Ur Leukocyte Esterase (Negative) Urine RBC (0-2) /HPF Urine WBC (0-5) /HPF Ur Squamous Epith Cells (0-2) /HPF Urine Bacteria (None Seen) Hyaline Casts (0-2) /LPF 01/25/23 01/25/23 01/25/23 Range/Units 15:43 15:43 20:19 WBC (4.8-10.8) X10*3/uL RBC (4.60-5.80) X10*6/uL Hgb (14.0-18.0) g/dl Hct (42.0-52.0) % MCV (80.0-98.0) fL MCH (27.0-33.0) pg MCHC (31.0-36.0) g/dl RDW (11.0-16.0) % Plt Count (160-400) X10*3/uL MPV (9.4-12.4) fL Immature Gran % (Auto) (0.0-0.4) % Neut % (Auto) (45-73) % Lymph % (Auto) (20-40) % [place] % (Auto) (2-11) % Eos % (Auto) (0-4) % Baso % (Auto) (0-2) % Lymph # (Auto) (1.2-4.9) X10*3/uL [place] # (Auto) (0.1-1.2) X10*3/uL Eos # (Auto) (0.0-0.4) X10*3/uL Baso # (Auto) (0.0-0.2) X10*3/uL Abs Immat Gran (auto) (0.00-0.03) X10*3/uL Absolute Neuts (auto) (2.0-8.3) x10*3/uL Absolute Nucleated RBC (0.0-0.012) X10*3/uL Nucleated RBC % (auto) (0.0-0.2) /100WBC PT (10.0-13.1) SEC INR (0.9-1.1) Sodium (135-145) mmol/L Potassium (3.3-5.1) mmol/L Chloride (96-108) mmol/L Carbon Dioxide (22-29) mmol/L Anion Gap (12-20) BUN (9-16) mg/dL Creatinine (0.5-1.4) mg/dL Estim Creat Clear Calc Estimated GFR Random Glucose (60-115) mg/dL Lactic Acid 1.8 (0.5-2.0) mmol/L Calcium (8.4-10.2) mg/dL Magnesium (1.6-2.6) mg/dL Total Bilirubin (0.0-1.0) mg/dL Direct Bilirubin (0.0-0.5) mg/dL AST (5-37) U/L ALT (0-40) U/L Alkaline Phosphatase (39-117) U/L Troponin I High Sens < 2.7 (<3.5-35.0) ng/L Total Protein (6.5-8.0) g/dL Albumin (3.5-5.0) g/dL Lipase (8-78) U/L Urine Color Yellow Urine Appearance Clear Urine pH 7.0 (5.0-9.0) Ur Specific [place] >= 1.030 H (1.005-1.025) Urine Protein 30 (1+) H (Neg-Trace) mg/dL Urine Glucose (UA) Negative (Negative) mg/dL Urine Ketones 15 (Negative) mg/dL Urine Blood Negative (Negative) Urine Nitrite Negative (Negative) Ur Leukocyte Esterase Negative (Negative) Urine RBC 3-5 H (0-2) /HPF Urine WBC 0-5 (0-5) /HPF Ur Squamous Epith Cells 0-2 (0-2) /HPF Urine Bacteria None Seen (None Seen) Hyaline Casts 0-2 (0-2) /LPF Independent Interpretation I performed an independent interpretation of an: CT Scan Radiology Impression Discussion of test interpretation with radiology: I have reviewed the radiologist's reading. External Record Review External record reviewed: Inpatient record, Office record, Outpatient record, Prior outpatient labs, Prior outpatient radiology, Primary care record and Outside ED record Core Measures AMI core measures followed: Yes Measure exclusions: not indicated Critical Care Time Critical Care Time Critical Care Time: No Discharge Plan Discharge Clinical Impression: S/P laparoscopic cholecystectomy, Abscess after procedure, Nausea & vomiting, Abdominal pain, RUQ Patient Disposition: Admitted As Inpatient Prescriptions: No Action docusate sodium [Colace] 100 mg capsule 100 mg PO BID Qty: 30 0RF
--- NOTE | 2023-01-25 14:50 | ECG_ITS ---
Test Reason : WEAKNESS Blood Pressure : / mmHG Vent. Rate : 095 BPM Atrial Rate : 095 BPM P-R Int : 160 ms QRS Dur : 074 ms QT Int : 350 ms P-R-T Axes : 017 026 -14 degrees QTc Int : 439 ms Normal sinus rhythm Normal ECG When compared with ECG of 05-JAN-2023 19:11, No significant change was found Referred By: Rhiannon Ford Electronically Signed By:MODESTO VARGHESE
[2023-01-25 15:17] VITALS: BP 108/63; PULSE 91; RESP 31; TEMP 37.3; O2SAT 98
[2023-01-25 15:50] LABS: MANUAL DIFF FLAG NO
[2023-01-25 15:52] LABS: Basophils Percent Auto 0.2 % (0-2); Eosinophils Percent Auto 0.1 % (0-4); Hematocrit 35.5 % (42.0-52.0); Hemoglobin 12.4 g/dl (14.0-18.0); Imm Gran Abs Auto 0.03 X10*3/uL (0.00-0.03); Imm Gran Pct Auto 0.3 % (0.0-0.4); Lymphocytes Absolute Auto 0.7 X10*3/uL (1.2-4.9); Mean Corpuscular HGB Conc 34.9 g/dl (31.0-36.0); Mean Corpuscular Hemoglobin 31.6 pg (27.0-33.0); Mean Corpuscular Volume 90.6 fL (80.0-98.0); Mean Platelet Volume 8.7 fL (9.4-12.4); Monocytes Absolute Auto 0.6 X10*3/uL (0.1-1.2); Monocytes Percent Auto 6.5 % (2-11); Neutrophils Absolute Auto 7.6 x10*3/uL (2.0-8.3); Neutrophils Percent Auto 84.9 % (45-73); Platelet Count 231 X10*3/uL (160-400); Red Blood Count 3.92 X10*6/uL (4.60-5.80); Red Cell Distribution Width 11.5 % (11.0-16.0); White Blood Count 8.9 X10*3/uL (4.8-10.8)
[2023-01-25] MEDS: 0.9 % Sodium Chloride 1,000 ML 999 ML IV ×2 (15:52→17:46)
[2023-01-25 16:04] LABS: INTERNATIONAL NORM RATIO 1.4 (0.9-1.1); Prothrombin Time 15.8 SEC (10.0-13.1)
[2023-01-25 16:05] LABS: Lactic Acid 1.8 mmol/L (0.5-2.0)
[2023-01-25 16:09] LABS: Alanine Aminotransferase 90 U/L (0-40); Albumin Level 3.5 g/dL (3.5-5.0); Alkaline Phosphatase 102 U/L (39-117); Anion Gap 15 (12-20); Aspartate Amino Transferase 44 U/L (5-37); Bilirubin Direct 0.4 mg/dL (0.0-0.5); Bilirubin Total 1.3 mg/dL (0.0-1.0); Blood Urea Nitrogen 14 mg/dL (9-16); Calcium 8.7 mg/dL (8.4-10.2); Carbon Dioxide 21 mmol/L (22-29); Chloride 102 mmol/L (96-108); Creatinine Clr Calc Pharmacy 95.4; Estimated Glomerular Filt Rate > 60; Glucose Random 132 mg/dL (60-115); Lipase 24 U/L (8-78); Magnesium 2.1 mg/dL (1.6-2.6); Sodium 134 mmol/L (135-145); Total Protein 7.3 g/dL (6.5-8.0)
--- NOTE | 2023-01-25 16:09 | ED_ITS ---
HPI - Nausea/Vomiting/Diarrhea General Chief complaint: Nausea/Vomiting/Diarrhea Stated complaint: Vomiting/Syncope Time Seen by Provider: 01/25/23 16:07 Related Data Home Medications ?Medication ?Instructions ?Recorded ?Confirmed oxycodone 5 mg tablet 5 mg PO Q4H PRN Pain 01/25/23 01/25/23 Previous Rx's ?Medication ?Instructions ?Recorded docusate sodium 100 mg capsule 100 mg PO BID #30 caps 01/07/23 (Colace) amoxicillin 500 mg-potassium 1 tab PO Q8H 10 days #30 tabs 01/29/23 clavulanate 125 mg tablet (Augmentin) Allergies Allergy/AdvReac Type Severity Reaction Status Date / Time No Known Allergies Allergy Verified 11/25/23 07:43 [facility] Past Medical History Medical History Torn meniscus Surgical History History of laparoscopic cholecystectomy (01/05/23) History of umbilical hernia repair (01/05/23) Social History Social History Household Members: None Housing: House Do you presently have visiting nurse or other home services: No Alcohol intake: never Comment: transfered to [facility] on days by another rn Patient Tobacco Use Status: Never used Tobacco e-Cigarette/Vaping Use: Never Used Second Hand Smoke Exposure: No Advance Directives: No Advance Directives Information Provided: No service: Yes Current occupational status: employed Physical Exam 2 Vital Signs: Vital Signs: Last Vital Signs Temp 96.7 F L 01/29/23 07:40 Pulse 72 01/29/23 07:40 Resp 20 01/29/23 07:40 BP 143/79 H 01/29/23 07:40 Pulse Ox 94 01/29/23 07:40 O2 Del Method Room Air 01/29/23 07:40 BMI result Body Mass Index 31.6 Medications Administered Discontinued Medications Generic Name Dose Route Start Last Admin Trade Name Freq PRN Reason Stop Dose Admin Acetaminophen 650 mg 01/25/23 18:34 01/25/23 18:55 Acetaminophen 325 Mg Tablet PO 01/25/23 18:35 650 mg ONCE ONE Administration Acetaminophen 975 mg 01/25/23 20:33 01/26/23 21:28 Acetaminophen 325 Mg Tablet PO 975 mg Q6H PRN Administration Pain, Mild (Pain Scale 1-3) Docusate Sodium 200 mg 01/25/23 21:00 01/29/23 08:44 Docusate Sodium 100 Mg Capsule PO Not Given BID NIKO Fentanyl 25 mcg 01/25/23 16:23 01/25/23 17:43 Fentanyl Citrate/Pf 100 Mcg/2 Ml Vial IVPUSH 01/25/23 16:24 25 mcg ONCE ONE Administration Protocol Fentanyl 25 mcg 01/26/23 14:49 01/26/23 14:54 Fentanyl Citrate/Pf 100 Mcg/2 Ml Vial IVPUSH 01/26/23 14:50 25 mcg NOW STA Administration Hydromorphone HCl 0.25 mg 01/25/23 20:33 01/26/23 17:10 Hydromorphone Hcl 0.5 Mg/0.5 Ml Syringe IVPUSH 0.25 mg Q2H PRN Administration Pain, Moderate(Pain Scale 4-6) Protocol Sodium Chloride 1,000 mls @ 999 mls/hr 01/25/23 15:00 01/25/23 16:00 Ns IV 01/25/23 16:00 Infused .Q1H1M INKO Infusion Sodium Chloride 1,000 mls @ 999 mls/hr 01/25/23 16:15 01/25/23 18:47 Ns IV 01/25/23 17:15 Infused .Q1H1M NIKO Infusion Piperacillin Sod/Tazobactam 50 mls @ 100 mls/hr 01/25/23 18:34 01/25/23 19:26 Sod 3.375 gm/ Sodium Chloride IV 01/25/23 19:03 Infused ONCE ONE Infusion Lactated Ringer's 1,000 mls @ 100 mls/hr 01/25/23 20:45 01/27/23 12:31 Lr IVCONT Infused .Q10H NIKO Infusion Piperacillin Sod/Tazobactam 50 mls @ 100 mls/hr 01/26/23 00:00 01/27/23 08:34 Sod 3.375 gm/ Sodium Chloride IV Not Given Q6H NIKO Piperacillin Sod/Tazobactam 50 mls @ 100 mls/hr 01/27/23 09:00 01/29/23 08:44 Sod 3.375 gm/ Sodium Chloride IV Infused Q6H NIKO Infusion Iohexol 100 ml 01/25/23 16:31 01/25/23 16:32 Iohexol 350 Mg/Ml 100 Ml Infus..Btl IV 01/25/23 16:32 85 ml ONCE ONE Administration Ondansetron HCl 4 mg 01/25/23 16:11 01/25/23 17:44 Ondansetron Hcl 4 Mg/2 Ml Vial IVPUSH 01/25/23 16:12 4 mg ONCE ONE Administration Ondansetron HCl 4 mg 01/25/23 20:33 01/26/23 15:29 Ondansetron Hcl 4 Mg/2 Ml Vial IVPUSH 4 mg Q8H PRN Administration Nausea and Vomiting Oxycodone HCl 5 mg 01/26/23 14:27 01/27/23 21:05 Oxycodone Hcl Immed Release 5 Mg Tablet PO 5 mg Q4H PRN Administration Pain, Moderate(Pain Scale 4-6) Medical Decision Making Lab Data 01/26/23 05:46 01/26/23 05:46 Labs: Lab Results 01/25/23 01/25/23 01/25/23 Range/Units 14:45 15:43 20:19 WBC 8.9 (4.8-10.8) X10*3/uL RBC 3.92 L (4.60-5.80) X10*6/uL Hgb 12.4 L (14.0-18.0) g/dl Hct 35.5 L (42.0-52.0) % MCV 90.6 (80.0-98.0) fL MCH 31.6 (27.0-33.0) pg MCHC 34.9 (31.0-36.0) g/dl RDW 11.5 (11.0-16.0) % Plt Count 231 D (160-400) X10*3/uL MPV 8.7 L (9.4-12.4) fL Immature Gran % (Auto) 0.3 (0.0-0.4) % Neut % (Auto) 84.9 H (45-73) % Lymph % (Auto) 8.0 L (20-40) % [place] % (Auto) 6.5 (2-11) % Eos % (Auto) 0.1 (0-4) % Baso % (Auto) 0.2 (0-2) % Lymph # (Auto) 0.7 L (1.2-4.9) X10*3/uL [place] # (Auto) 0.6 (0.1-1.2) X10*3/uL Eos # (Auto) 0.0 (0.0-0.4) X10*3/uL Baso # (Auto) 0.0 (0.0-0.2) X10*3/uL Abs Immat Gran (auto) 0.03 (0.00-0.03) X10*3/uL Absolute Neuts (auto) 7.6 (2.0-8.3) x10*3/uL Absolute Nucleated RBC 0.000 (0.0-0.012) X10*3/uL Nucleated RBC % (auto) 0.0 (0.0-0.2) /100WBC PT 15.8 H (10.0-13.1) SEC INR 1.4 H (0.9-1.1) Sodium 134 L (135-145) mmol/L Potassium 4.0 (3.3-5.1) mmol/L Chloride 102 (96-108) mmol/L Carbon Dioxide 21 L (22-29) mmol/L Anion Gap 15 (12-20) BUN 14 (9-16) mg/dL Creatinine 0.95 (0.5-1.4) mg/dL Estim Creat Clear Calc 95.4 Estimated GFR > 60 POC Glucose 138 H (60-115) mg/dL Random Glucose 132 H (60-115) mg/dL Estimat Average Glucose 105 mg/dL Hemoglobin A1c % 5.3 % Lactic Acid 1.8 (0.5-2.0) mmol/L Calcium 8.7 D (8.4-10.2) mg/dL Magnesium 2.1 (1.6-2.6) mg/dL Total Bilirubin 1.3 H (0.0-1.0) mg/dL Direct Bilirubin 0.4 (0.0-0.5) mg/dL AST 44 H (5-37) U/L ALT 90 H (0-40) U/L Alkaline Phosphatase 102 (39-117) U/L Troponin I High Sens < 2.7 (<3.5-35.0) ng/L Total Protein 7.3 (6.5-8.0) g/dL Albumin 3.5 (3.5-5.0) g/dL Lipase 24 (8-78) U/L Urine Color Yellow Urine Appearance Clear Urine pH 7.0 (5.0-9.0) Ur Specific [place] >= 1.030 H (1.005-1.025) Urine Protein 30 (1+) H (Neg-Trace) mg/dL Urine Glucose (UA) Negative (Negative) mg/dL Urine Ketones 15 (Negative) mg/dL Urine Blood Negative (Negative) Urine Nitrite Negative (Negative) Ur Leukocyte Esterase Negative (Negative) Urine RBC 3-5 H (0-2) /HPF Urine WBC 0-5 (0-5) /HPF Ur Squamous Epith Cells 0-2 (0-2) /HPF Urine Bacteria None Seen (None Seen) Hyaline Casts 0-2 (0-2) /LPF Discharge Plan Discharge Clinical Impression: S/P laparoscopic cholecystectomy, Abscess after procedure, Nausea & vomiting, Abdominal pain, RUQ Patient Disposition: Admitted As Inpatient Interventions: Admission Worksheet (ED) Last Done: 01/26/23 19:58 Discharge Date/Time: 01/26/23 08:30
[2023-01-25 16:19] LABS: Troponin-I High Sensitivity < 2.7 ng/L (<3.5-35.0)
[2023-01-25] MEDS: iohexoL 350 MG/ML 100 ML INFUS..BTL IV (16:32)
[2023-01-25] MEDS: fentaNYL citrate/PF 100 MCG/2 ML VIAL 25 MCG IVPUSH (17:43)
[2023-01-25] MEDS: ondansetron HCL 4 MG/2 ML VIAL IVPUSH (17:44)
[2023-01-25] MEDS: Acetaminophen 325 MG TABLET 650 MG PO (18:55)
[2023-01-25] MEDS: Piperacillin Sodium/Tazobactam 3.375 GM in 0.9 % Sodium Chloride 50 ML IV (18:56)
[2023-01-25 20:26] LABS: Appearance Urine Clear; Color Urine Yellow; Glucose Urine UA Negative (Negative); Leukocyte Esterase Urine Negative (Negative); Nitrite Urine Negative (Negative); Specific Gravity - Urine >= 1.030 (1.005-1.025); UMIC TRIGGER UACC YES; Urine Blood Negative (Negative); Urine Ketones 15 mg/dL (Negative); Urine Protein 30 (1+) mg/dL (Neg-Trace)
[2023-01-25 20:31] LABS: Bacteria Urine None Seen (None Seen); Hyaline Casts Urine 0-2 /LPF (0-2); Squamous Epithelial Cell Urine 0-2 /HPF (0-2); WBC Urine 0-5 /HPF (0-5)
--- NOTE | 2023-01-25 20:35 | PM.HPGS ---
History of Present Illness History of Present Illness Date of Service: 01/25/23 Chief complaint: Vomiting/Syncope Narrative: Pablo Zuniga is a 63 year old male who underwent laparoscopic cholecystectomy on 01/06/[address] Fischer due to gangrenous cholecystitis. Repair of an umbilical hernia was also performed. Patient was seen in the office on 01/24/[address] ordered because of abdominal complaints and feeling poorly. The patient is noted to have a right upper quadrant collection and has been feeling poorly with near syncope and vomiting. I was asked to evaluate the patient to help facilitate his care. The patient reports low-grade fevers and is 99.2F at the time of evaluation. Patient notes that he has been feeling poorly for the past few days but worsened earlier today. He denies any chest pain, difficulty breathing, shortness of breath or localizing neurologic symptoms. Pathology demonstrated suppurative acute cholecystitis but no evidence of malignancy. Review of Systems Review of Systems: Yes all other systems are reviewed and are negative Constitutional: Constitutional: Reports as per [facility] Past Medical History Medical History Torn meniscus Surgical History Surgical History History of laparoscopic cholecystectomy (01/05/23) History of umbilical hernia repair (01/05/23) Social History Social History Household Members: None Housing: Apartment Do you presently have visiting nurse or other home services: No Alcohol intake: never Patient Tobacco Use Status: Never used Tobacco Second Hand Smoke Exposure: No Advance Directives: No Advance Directives Information Provided: No service: No Current occupational status: employed Meds Allergies Allergy/AdvReac Type Severity Reaction Status Date / Time No Known Allergies Allergy Verified 01/13/23 14:11 Physical Exam Vital Signs: Vital Signs: Last Vital Signs Temp 99.2 F 01/25/23 15:17 Pulse 91 01/25/23 15:17 Resp 31 H 01/25/23 15:17 BP 108/63 01/25/23 15:17 Pulse Ox 98 01/25/23 15:17 O2 Del Method Room Air 01/25/23 15:17 BMI result Body Mass Index 31.6 The patient is non-toxic & in good spirits NC/AT, PERRLA, EOMI Mood, affect & judgment all appear appropriate Sclera anicteric conjunctiva pink and moist Oropharynx is clear with no aphthous ulcers, Mallampati class 4, mucous membranes moist Neck is supple with no masses, adenopathy or bruits Heart is regular, normal S1-S2 no rubs or murmurs Lungs are clear and equal anteriorly with no audible wheezing, rubs or dullness to percussion Abdomen is overweight with no demonstrable hernias. He has localized right upper quadrant discomfort with mild peritoneal irritation to percussion. The remaining abdomen is soft and nontender. Incisions are dry and intact. No HSM, rebound, rigidity, guarding, masses or bruits are present. Rectal exam is deferred Skin has good turgor and is free of rashes Extremities free of cyanosis clubbing edema Results Results Labs: Short CBC 01/25/23 Range/Units 15:43 WBC 8.9 (4.8-10.8) X10*3/uL Hgb 12.4 L (14.0-18.0) g/dl Hct 35.5 L (42.0-52.0) % Plt Count 231 D (160-400) X10*3/uL BMP 01/25/23 15:43 Sodium 134 L Potassium 4.0 Chloride 102 Carbon Dioxide 21 L BUN 14 Creatinine 0.95 Calcium 8.7 D Liver Function 01/25/23 Range/Units 15:43 Total Bilirubin 1.3 H (0.0-1.0) mg/dL Direct Bilirubin 0.4 (0.0-0.5) mg/dL AST 44 H (5-37) U/L ALT 90 H (0-40) U/L Alkaline Phosphatase 102 (39-117) U/L Albumin 3.5 (3.5-5.0) g/dL Urine 01/25/23 Range/Units 20:19 Urine Color Yellow Urine Appearance Clear Urine pH 7.0 (5.0-9.0) Ur Specific [place] >= 1.030 H (1.005-1.025) Urine Protein 30 (1+) H (Neg-Trace) mg/dL Urine Glucose (UA) Negative (Negative) mg/dL Abdomen CT scan report/results: report reviewed and image reviewed CT scan - pelvis: report reviewed and image reviewed Additional studies: The patient's hemoglobin is down slightly to 12.4 which may be consistent with a postoperative bleed. Patient is also at an increased risk for abscess given the intraoperative findings. Assessment and Plan (1) S/P laparoscopic cholecystectomy: Status: Acute (2) Acute calculous cholecystitis: Status: Acute (3) Abdominal wall abscess at site of surgical wound: Status: Acute Plan The patient will be admitted to the hospital and placed on antibiotics and IV fluid. Pain medicine and antiemetics are ordered. Continue NPO overnight Presentation is most concerning for an abscess given the suppurative acute cholecystitis, but the patient may also have had post cholecystectomy bleeding. Will order percutaneous drainage in discuss with Dr. Fischer in the morning will assume care. Patient's hemoglobin A1c is currently pending. His last 3 blood glucoses were elevated and the patient's habitus puts him at an increased risk for type 2 diabetes. Call for worsening pain, fevers, vomiting Time Spent With Patient Time: Total time managing care of this patient today ____ minutes. Quality Stroke Does the patient have a stroke diagnosis?: No VTE Prior VTE?: No VTE Risk Level:: Surgical - moderate VTE Device Contraindication: N/A - Device Ordered VTE Drug Contraindication: Treatment Not Indicated Procedures Date of Service Date of Service: 01/25/23
--- NOTE | 2023-01-25 20:52 | PHA.MEDREC ---
Pharmacy Consult ? Medication Reconciliation Pharmacy has completed the medication reconciliation.
[2023-01-25] MEDS: Lactated Ringers 1,000 ML 100 ML IVCONT (21:06)
[2023-01-25] MEDS: Docusate Sodium 100 MG CAPSULE 200 MG PO (21:06)
[2023-01-25 21:10] VITALS: BP 121/65; PULSE 76; RESP 13; TEMP 36.7; O2SAT 96
[2023-01-26] VITALS (9 sets, daily range): BP systolic 115–139; BP diastolic 66–78; PULSE 73–96; RESP 16–20; TEMP 36.6–38.3; O2SAT 95–98
--- NOTE | 2023-01-26 00:17 | PC.NURSE ---
Report given to overflow nurse as pt is being transferred. Pt aware of plan of care.
[2023-01-26] MEDS: Piperacillin Sodium/Tazobactam 3.375 GM in 0.9 % Sodium Chloride 50 ML IV ×4 (00:33→17:10)
--- NOTE | 2023-01-26 00:58 | PC.NURSE ---
marko rn completed belongings list with the pt at bedside prior to transfer to [facility]. Pt awake and alert without distress. IV ABX infusing without s/s of complications noted; IVF on hold with antibiotic up and running. Information regarding IVF and antibiotics relayed to RN in OF upon arrival
[2023-01-26 05:18] LABS: Estimated Average Glucose 105 mg/dL; Hemoglobin A1c % 5.3 %
[2023-01-26 05:54] LABS: MANUAL DIFF FLAG NO
[2023-01-26 05:57] LABS: Basophils Percent Auto 0.3 % (0-2); Eosinophils Absolute Auto 0.2 X10*3/uL (0.0-0.4); Eosinophils Percent Auto 2.6 % (0-4); Hematocrit 30.8 % (42.0-52.0); Hemoglobin 10.7 g/dl (14.0-18.0); Imm Gran Abs Auto 0.03 X10*3/uL (0.00-0.03); Imm Gran Pct Auto 0.5 % (0.0-0.4); Lymphocytes Percent Auto 15.3 % (20-40); Mean Corpuscular HGB Conc 34.7 g/dl (31.0-36.0); Mean Corpuscular Hemoglobin 32.4 pg (27.0-33.0); Mean Corpuscular Volume 93.3 fL (80.0-98.0); Mean Platelet Volume 8.9 fL (9.4-12.4); Monocytes Absolute Auto 0.7 X10*3/uL (0.1-1.2); Monocytes Percent Auto 10.5 % (2-11); Neutrophils Absolute Auto 4.4 x10*3/uL (2.0-8.3); Neutrophils Percent Auto 70.8 % (45-73); Platelet Count 179 X10*3/uL (160-400); Red Cell Distribution Width 11.5 % (11.0-16.0); White Blood Count 6.3 X10*3/uL (4.8-10.8)
[2023-01-26 06:24] LABS: Alanine Aminotransferase 77 U/L (0-40); Albumin Level 2.8 g/dL (3.5-5.0); Alkaline Phosphatase 74 U/L (39-117); Anion Gap 11 (12-20); Aspartate Amino Transferase 40 U/L (5-37); Bilirubin Total 0.7 mg/dL (0.0-1.0); Blood Urea Nitrogen 12 mg/dL (9-16); Calcium 8.1 mg/dL (8.4-10.2); Carbon Dioxide 23 mmol/L (22-29); Chloride 107 mmol/L (96-108); Creatinine Clr Calc Pharmacy 120.9; Estimated Glomerular Filt Rate > 60; Glucose Random 110 mg/dL (60-115); Potassium 4.2 mmol/L (3.3-5.1); Sodium 137 mmol/L (135-145); Total Protein 5.9 g/dL (6.5-8.0)
[2023-01-26] MEDS: Lactated Ringers 1,000 ML 100 ML IVCONT ×2 (08:56→21:29)
--- NOTE | 2023-01-26 09:10 | P.PNGS_ITS ---
Subjective Subjective Date of Service: 01/26/23 <Liyah Zhao PA-C - Last Filed: 01/26/23 09:17> 01/26/23 <Brandon Fischer MD - Last Filed: 01/26/23 10:04> Interval history: Denies abd pain or nausea. Awaiting drainage. <Liyah Zhao PA-C - Last Filed: 01/26/23 09:17> Physical Exam Vital Signs: Vital Signs: Last Vital Signs Temp 99.1 F 01/26/23 07:58 Pulse 75 01/26/23 07:58 Resp 16 01/26/23 07:58 BP 126/66 01/26/23 07:58 Pulse Ox 95 01/26/23 07:58 O2 Del Method Room Air 01/26/23 07:58 BMI result Body Mass Index 31.6 <MIKEY Kilgore Last Filed: 01/26/23 09:17> Const: General: no acute distress and alert <MIKEY Kilgore Last Filed: 01/26/23 09:17> Orientation/consciousness: patient oriented x3 <MIKEY Kilgore Last Filed: 01/26/23 09:17> Resp: Effort & Inspection: normal respiratory effort <MIKEY Kilgore Last Filed: 01/26/23 09:17> Cardio: Rate: regular rate <MIKEY Kilgore Last Filed: 01/26/23 09:17> GI: Inspection: No distended, Yes incision (well healed) and Yes Abdominal panniculus present <Liyah Zhao PA-C - Last Filed: 01/26/23 09:17> Palpation (GI): Soft to palpation, Tenderness to palpation present (GI) (very mild RUQ tenderness to deep palpation), no guarding and not rigid <MIKEY Kilgore Last Filed: 01/26/23 09:17> Percussion: Yes normal to percussion <MIKEY Kilgore Last Filed: 01/26/23 09:17> Skin: General skin exam: no rashes or lesions noted and no jaundice <Liyah Zhao PA-C - Last Filed: 01/26/23 09:17> Neuro: General: patient oriented x3 and moves all extremities <Liyah Zhao PA-C - Last Filed: 01/26/23 09:17> Objective Data Active Medications Acetaminophen (Acetaminophen 325 Mg Tablet) 975 mg PO Q6H PRN PRN Reason: Pain, Mild (Pain Scale 1-3) Docusate Sodium (Docusate Sodium 100 Mg Capsule) 200 mg PO BID [facility] Last Admin: 01/25/23 21:06 Dose: 200 mg Documented By: CECILLE Hydromorphone HCl (Hydromorphone Hcl 0.5 Mg/0.5 Ml Syringe) 0.25 mg IVPUSH Q2H PRN; Protocol PRN Reason: Pain, Moderate(Pain Scale 4-6) Lactated Ringer's (Lr) 1,000 mls @ 100 mls/hr IVCONT .Q10H [facility] Last Admin: 01/26/23 08:56 Dose: 100 mls/hr Documented By: ESA Piperacillin Sod/Tazobactam (Sod 3.375 gm/ Sodium Chloride) 50 mls @ 100 mls/hr IV Q6H [facility] Last Infusion: 01/26/23 06:25 Dose: 0 mls/hr Documented By: MINA Ondansetron HCl (Ondansetron Hcl 4 Mg/2 Ml Vial) 4 mg IVPUSH Q8H PRN PRN Reason: Nausea and Vomiting Pharmacy Consult (Consult Rx Perform Med Rec) 1 each MISCELLANE ONCE PRN PRN Reason: Consult order <Liyah Zhao PA-C - Last Filed: 01/26/23 09:17> Labs CBC & Chem 7: 01/26/23 05:46 01/26/23 05:46 <Liyah Zhao PA-C - Last Filed: 01/26/23 09:17> Labs: Laboratory Results - last 24 hr 01/25/23 01/25/23 01/25/23 15:43 15:43 15:43 MCV 90.6 MCH 31.6 MCHC 34.9 RDW 11.5 Plt Count 231 D MPV 8.7 L Immature Gran % (Auto) 0.3 Neut % (Auto) 84.9 H Lymph % (Auto) 8.0 L [place] % (Auto) 6.5 Eos % (Auto) 0.1 Baso % (Auto) 0.2 Lymph # (Auto) 0.7 L [place] # (Auto) 0.6 Eos # (Auto) 0.0 Baso # (Auto) 0.0 Abs Immat Gran (auto) 0.03 Absolute Neuts (auto) 7.6 Absolute Nucleated RBC 0.000 Nucleated RBC % (auto) 0.0 PT 15.8 H INR 1.4 H Anion Gap 15 Estim Creat Clear Calc 95.4 Estimated GFR > 60 Random Glucose 132 H Estimat Average Glucose Hemoglobin A1c % Lactic Acid Calcium 8.7 D Magnesium 2.1 Total Bilirubin 1.3 H Direct Bilirubin 0.4 AST 44 H ALT 90 H Alkaline Phosphatase 102 Troponin I High Sens Total Protein 7.3 Albumin 3.5 Lipase 24 Urine Color Urine Appearance Urine pH Ur Specific [place] Urine Protein Urine Glucose (UA) Urine Ketones Urine Blood Urine Nitrite Ur Leukocyte Esterase Urine RBC Urine WBC Ur Squamous Epith Cells Urine Bacteria Hyaline Casts 01/25/23 01/25/23 01/25/23 15:43 15:43 20:19 MCV MCH MCHC RDW Plt Count MPV Immature Gran % (Auto) Neut % (Auto) Lymph % (Auto) [place] % (Auto) Eos % (Auto) Baso % (Auto) Lymph # (Auto) [place] # (Auto) Eos # (Auto) Baso # (Auto) Abs Immat Gran (auto) Absolute Neuts (auto) Absolute Nucleated RBC Nucleated RBC % (auto) PT INR Anion Gap Estim Creat Clear Calc Estimated GFR Random Glucose Estimat Average Glucose 105 Hemoglobin A1c % 5.3 Lactic Acid 1.8 Calcium Magnesium Total Bilirubin Direct Bilirubin AST ALT Alkaline Phosphatase Troponin I High Sens < 2.7 Total Protein Albumin Lipase Urine Color Urine Appearance Urine pH Ur Specific [place] Urine Protein Urine Glucose (UA) Urine Ketones Urine Blood Urine Nitrite Ur Leukocyte Esterase Urine RBC Urine WBC Ur Squamous Epith Cells Urine Bacteria Hyaline Casts 01/25/23 01/26/23 01/26/23 20:19 05:46 05:46 MCV 93.3 MCH 32.4 MCHC 34.7 RDW 11.5 Plt Count 179 MPV 8.9 L Immature Gran % (Auto) 0.5 H Neut % (Auto) 70.8 Lymph % (Auto) 15.3 L [place] % (Auto) 10.5 Eos % (Auto) 2.6 Baso % (Auto) 0.3 Lymph # (Auto) 1.0 L [place] # (Auto) 0.7 Eos # (Auto) 0.2 Baso # (Auto) 0.0 Abs Immat Gran (auto) 0.03 Absolute Neuts (auto) 4.4 Absolute Nucleated RBC 0.000 Nucleated RBC % (auto) 0.0 PT INR Anion Gap 11 L Estim Creat Clear Calc 120.9 Estimated GFR > 60 Random Glucose 110 Estimat Average Glucose Hemoglobin A1c % Lactic Acid Calcium 8.1 L D Magnesium Total Bilirubin 0.7 Direct Bilirubin AST 40 H ALT 77 H Alkaline Phosphatase 74 Troponin I High Sens Total Protein 5.9 L Albumin 2.8 L Lipase Urine Color Yellow Urine Appearance Clear Urine pH 7.0 Ur Specific [place] >= 1.030 H Urine Protein 30 (1+) H Urine Glucose (UA) Negative Urine Ketones 15 Urine Blood Negative Urine Nitrite Negative Ur Leukocyte Esterase Negative Urine RBC 3-5 H Urine WBC 0-5 Ur Squamous Epith Cells 0-2 Urine Bacteria None Seen Hyaline Casts 0-2 <Liyah Zhao PA-C - Last Filed: 01/26/23 09:17> Procedures Date of Service Date of Service: 01/26/23 <Liyah Zhao PA-C - Last Filed: 01/26/23 09:17> 01/26/23 <Barndon Fischer MD - Last Filed: 01/26/23 10:04> Progress Note: A&P Assessment and plan (1) S/P laparoscopic cholecystectomy: Status: Acute <Liyah Zhao PA-C - Last Filed: 01/26/23 09:17> (2) Intra-abdominal abscess post-procedure: Status: Acute <Liyah Zhao PA-C - Last Filed: 01/26/23 09:17> Assessment and Plan: 63 year old male who is 3 weeks s/p lap CCY for gangrenous cholecystitis who presented with c/o fatigue, anorexia. CT scan was performed which showed 6cm fluid collection at the gallbladder fossa. WBC normal. He was admitted to the surgical service for further treatment of the intraabdominal abscess. Will order CT guided drainage of the abscess for today. Cont IV zosyn, IVF, NPO status for now. Patient comfortable with plan. <Liyah Zhao PA-C - Last Filed: 01/26/23 09:17> Time Spent With Patient Time: Total time managing care of this patient today ____ minutes. <Liyah Zhao PA-C - Last Filed: 01/26/23 09:17> Quality Stroke Does the patient have a stroke diagnosis?: No <Liyah Zhao PA-C - Last Filed: 01/26/23 09:17> VTE Prior VTE?: No <Liyah Zhao PA-C - Last Filed: 01/26/23 09:17> VTE Risk Level:: Surgical - moderate <Liyah Zhao PA-C - Last Filed: 01/26/23 09:17> VTE Device Contraindication: N/A - Device Ordered <Liyah Zhao PA-C - Last Filed: 01/26/23 09:17> VTE Drug Contraindication: Treatment Not Indicated <Liyah Zhao PA-C - Last Filed: 01/26/23 09:17>
[2023-01-26] MEDS: Docusate Sodium 100 MG CAPSULE 200 MG PO ×2 (11:51→21:28)
--- NOTE | 2023-01-26 12:40 | MHC.CM.PN ---
CM met with Patient at bedside. Patient lives alone in a house and he required no services nor DME [employer]. Home/self care is the goal and CM has initiated and will follow for dc planning. Patient's Brother/Rufus is his HCP. Patient has received Pfizer/Covid vax and his new PCP is Dr. Kathy Farrell.
--- NOTE | 2023-01-26 14:11 | HO.RADPN ---
RADIOLOGY Narrative Narrative: 8 fr drain placed in gall bladder fossa abscess. 120 ml purulent fluid aspirated. Culture sent.
[2023-01-26] MEDS: fentaNYL citrate/PF 100 MCG/2 ML VIAL 25 MCG IVPUSH (14:54)
[2023-01-26] MEDS: ondansetron HCL 4 MG/2 ML VIAL IVPUSH (15:29)
[2023-01-26] MEDS: HYDROmorphone HCl 0.5 MG/0.5 ML SYRINGE 0.25 MG IVPUSH (17:10)
[2023-01-26] MEDS: Acetaminophen 325 MG TABLET 975 MG PO (21:28)
[2023-01-27] VITALS (7 sets, daily range): BP systolic 126–140; BP diastolic 57–78; PULSE 69–88; RESP 16–20; TEMP 36.2–37.6; O2SAT 75–96
[2023-01-27] MEDS: Piperacillin Sodium/Tazobactam 3.375 GM in 0.9 % Sodium Chloride 50 ML IV ×4 (03:00→21:06)
[2023-01-27 07:49] LABS: Glucose, Whole Blood 138 mg/dL (60-115)
--- NOTE | 2023-01-27 08:49 | P.PNGS_ITS ---
Subjective Subjective Date of Service: 01/27/23 <Liyah Zhao PA-C - Last Filed: 01/27/23 08:57> 01/27/23 <Brandon Fischer MD - Last Filed: 01/27/23 11:35> Interval history: Underwent CT guided drainage yesterday. Feels improved this morning, less pain. Wants to eat. <Liyah Zhao PA-C - Last Filed: 01/27/23 08:57> Physical Exam Vital Signs: Vital Signs: Last Vital Signs Temp 97.4 F 01/27/23 07:04 Pulse 69 01/27/23 07:04 Resp 16 01/27/23 07:04 BP 137/73 01/27/23 07:04 Pulse Ox 95 01/27/23 07:04 O2 Del Method Room Air 01/27/23 07:04 BMI result Body Mass Index 31.6 <MIKEY Kilgore Last Filed: 01/27/23 08:57> Const: General: comfortable, no acute distress and alert <MIKEY Kilgore Last Filed: 01/27/23 08:57> Orientation/consciousness: patient oriented x3 <MIKEY Kilgore Last Filed: 01/27/23 08:57> Resp: Effort & Inspection: normal respiratory effort <MIKEY Kilgore Last Filed: 01/27/23 08:57> GI: Other: AKASH bulb with sanguineous, purulent drainage <MIKEY Kilgore Last Filed: 01/27/23 08:57> Inspection: No distended <MIKEY Kilgore Last Filed: 01/27/23 08:57> Palpation (GI): Soft to palpation, Tenderness to palpation present (GI) (very mild RUQ tenderness, surrounding drain site), no guarding and not rigid <MIKEY Kilgore Last Filed: 01/27/23 08:57> Skin: General skin exam: no rashes or lesions noted <MIKEY Kilgore Last Filed: 01/27/23 08:57> Neuro: General: patient oriented x3 and moves all extremities <Liyah Zhao PA-C - Last Filed: 01/27/23 08:57> Objective Data Active Medications Acetaminophen (Acetaminophen 325 Mg Tablet) 975 mg PO Q6H PRN PRN Reason: Pain, Mild (Pain Scale 1-3) Last Admin: 01/26/23 21:28 Dose: 975 mg Documented By: ISDNEY Docusate Sodium (Docusate Sodium 100 Mg Capsule) 200 mg PO BID [facility] Last Admin: 01/26/23 21:28 Dose: 200 mg Documented By: SIDNEY Hydromorphone HCl (Hydromorphone Hcl 0.5 Mg/0.5 Ml Syringe) 0.25 mg IVPUSH Q2H PRN; Protocol PRN Reason: Pain, Moderate(Pain Scale 4-6) Last Admin: 01/26/23 17:10 Dose: 0.25 mg Documented By: JASON Lactated Ringer's (Lr) 1,000 mls @ 100 mls/hr IVCONT .Q10H [facility] Last Admin: 01/26/23 21:29 Dose: 100 mls/hr Documented By: SIDNEY Piperacillin Sod/Tazobactam (Sod 3.375 gm/ Sodium Chloride) 50 mls @ 100 mls/hr IV Q6H [facility] Ondansetron HCl (Ondansetron Hcl 4 Mg/2 Ml Vial) 4 mg IVPUSH Q8H PRN PRN Reason: Nausea and Vomiting Last Admin: 01/26/23 15:29 Dose: 4 mg Documented By: ESA Oxycodone HCl (Oxycodone Hcl Immed Release 5 Mg Tablet) 5 mg PO Q4H PRN PRN Reason: Pain, Moderate(Pain Scale 4-6) Pharmacy Consult (Consult Rx Perform Med Rec) 1 each MISCELLANE ONCE PRN PRN Reason: Consult order <Liyah Zhao PA-C - Last Filed: 01/27/23 08:57> Labs CBC & Chem 7: 01/26/23 05:46 01/26/23 05:46 <Liyah Zhao PA-C - Last Filed: 01/27/23 08:57> Labs: Laboratory Results - last 24 hr 01/25/23 14:45 POC Glucose 138 H <MIKEY Kilgore Last Filed: 01/27/23 08:57> Microbiology Microbiology Results: Microbiology 01/25/23 15:43 Blood Culture - Preliminary Blood - Venous No growth after 24 hours. 01/25/23 15:43 Blood Culture - Preliminary Blood - Venous No growth after 24 hours. <MIKEY Kilgore Last Filed: 01/27/23 08:57> Procedures Date of Service Date of Service: 01/27/23 <Liyah Zhao PA-C - Last Filed: 01/27/23 08:57> 01/27/23 <Brandon Fischer MD - Last Filed: 01/27/23 11:35> Progress Note: A&P Assessment and plan (1) Intra-abdominal abscess post-procedure: Status: Acute <MIKEY Kilgore Last Filed: 01/27/23 08:57> (2) S/P laparoscopic cholecystectomy: Status: Acute <MIKEY Kilgore Last Filed: 01/27/23 08:57> Assessment and Plan: 63 year old male who is 3 weeks s/p lap CCY for gangrenous cholecystitis who presented with c/o fatigue, anorexia found to have intraabdominal abscess at GB fossa. Had CT guided drainage yesterday, ~120cc purulent fluid. Continues with purulent appearing output, keep drain in place. Cont IV zosyn. Await cultures to tailor abx. Advance diet to solid, dc IVF. Patient comfortable in plan. <MIKEY Kilgore Last Filed: 01/27/23 08:57> Time Spent With Patient Time: Total time managing care of this patient today ____ minutes. <MIKEY Kilgore Last Filed: 01/27/23 08:57> Quality Stroke Does the patient have a stroke diagnosis?: No <MIKEY Kilgore Last Filed: 01/27/23 08:57> VTE Prior VTE?: No <MIKEY Kilgore Last Filed: 01/27/23 08:57> VTE Risk Level:: Surgical - moderate <MIKEY Kilgore Last Filed: 01/27/23 08:57> VTE Device Contraindication: N/A - Device Ordered <Liyah Zhao PA-C - Last Filed: 01/27/23 08:57> VTE Drug Contraindication: Treatment Not Indicated <Liyah Zhao PA-C - Last Filed: 01/27/23 08:57>
[2023-01-27] MEDS: Docusate Sodium 100 MG CAPSULE 200 MG PO ×2 (12:42→21:06)
[2023-01-27] MEDS: oxyCODONE HCl Immed Release 5 MG TABLET PO (21:05)
[2023-01-28] MEDS: Piperacillin Sodium/Tazobactam 3.375 GM in 0.9 % Sodium Chloride 50 ML IV ×4 (02:52→21:19)
[2023-01-28 03:21] VITALS: BP 135/74; PULSE 72; RESP 16; TEMP 36.6; O2SAT 94
[2023-01-28 07:56] VITALS: BP 133/70; PULSE 76; RESP 20; TEMP 36.2; O2SAT 93
--- NOTE | 2023-01-28 09:10 | P.PNGS_ITS ---
Subjective Subjective Date of Service: 01/28/23 Interval history: uneventful evening. Patient took some diet. Had a small bowel movement last p.m.. Feels overall much better. Physical Exam Vital Signs: Vital Signs: Last Vital Signs Temp 97.2 F 01/28/23 07:56 Pulse 76 01/28/23 07:56 Resp 20 01/28/23 07:56 BP 133/70 01/28/23 07:56 Pulse Ox 93 01/28/23 07:56 O2 Del Method Room Air 01/28/23 07:56 BMI result Body Mass Index 31.6 GI: Other: abdomen soft. Serosanguineous drainage from AKASH. Objective Data Active Medications Acetaminophen (Acetaminophen 325 Mg Tablet) 975 mg PO Q6H PRN PRN Reason: Pain, Mild (Pain Scale 1-3) Last Admin: 01/26/23 21:28 Dose: 975 mg Documented By: SIDNEY Docusate Sodium (Docusate Sodium 100 Mg Capsule) 200 mg PO BID [facility] Last Admin: 01/28/23 07:52 Dose: Not Given Documented By: JOHN Non-Admin Reason: Patient Refused Hydromorphone HCl (Hydromorphone Hcl 0.5 Mg/0.5 Ml Syringe) 0.25 mg IVPUSH Q2H PRN; Protocol PRN Reason: Pain, Moderate(Pain Scale 4-6) Last Admin: 01/26/23 17:10 Dose: 0.25 mg Documented By: JASON Piperacillin Sod/Tazobactam (Sod 3.375 gm/ Sodium Chloride) 50 mls @ 100 mls/hr IV Q6H [facility] Last Infusion: 01/28/23 08:45 Dose: 0 mls/hr Documented By: JOHN Ondansetron HCl (Ondansetron Hcl 4 Mg/2 Ml Vial) 4 mg IVPUSH Q8H PRN PRN Reason: Nausea and Vomiting Last Admin: 01/26/23 15:29 Dose: 4 mg Documented By: ESA Oxycodone HCl (Oxycodone Hcl Immed Release 5 Mg Tablet) 5 mg PO Q4H PRN PRN Reason: Pain, Moderate(Pain Scale 4-6) Last Admin: 01/27/23 21:05 Dose: 5 mg Documented By: MINDY Pharmacy Consult (Consult Rx Perform Med Rec) 1 each MISCELLANE ONCE PRN PRN Reason: Consult order Labs 01/26/23 05:46 01/26/23 05:46 Microbiology Microbiology Results: Microbiology 01/26/23 14:00 Gram Stain - Final Abscess Intra-abdominal Routine Culture - Preliminary Gram negative davi 01/25/23 15:43 Blood Culture - Preliminary Blood - Venous No growth after 48 hours. 01/25/23 15:43 Blood Culture - Preliminary Blood - Venous No growth after 48 hours. Procedures Date of Service Date of Service: 01/28/23 Progress Note: A&P Assessment and plan (1) Intra-abdominal abscess post-procedure: Status: Acute Plan Continue current plan. Await final culture results. Consider either home with AKASH drain or if output minimal, DC drain . Time Spent With Patient Time: Total time managing care of this patient today ____ minutes. Quality Stroke Does the patient have a stroke diagnosis?: No VTE Prior VTE?: No VTE Risk Level:: Surgical - moderate VTE Device Contraindication: N/A - Device Ordered VTE Drug Contraindication: Treatment Not Indicated
--- NOTE | 2023-01-28 10:26 | MHC.CM.PN ---
Patient is not yet medically cleared for dc. If AKASH drain is not removed prior to dc, he may require a new VNA. CM will follow.
[2023-01-28 11:58] VITALS: BP 137/77; PULSE 69; RESP 20; TEMP 36.1; O2SAT 96
[2023-01-28 15:35] VITALS: BP 143/69; PULSE 74; RESP 18; TEMP 37; O2SAT 98
[2023-01-28 19:51] VITALS: BP 134/75; PULSE 78; RESP 18; TEMP 36.7; O2SAT 98
[2023-01-28] MEDS: Docusate Sodium 100 MG CAPSULE 200 MG PO (21:18)
[2023-01-29] MEDS: Piperacillin Sodium/Tazobactam 3.375 GM in 0.9 % Sodium Chloride 50 ML IV ×2 (04:28→08:00)
[2023-01-29 04:33] VITALS: BP 140/81; PULSE 75; RESP 18; TEMP 37.7; O2SAT 94
[2023-01-29 07:40] VITALS: BP 143/79; PULSE 72; RESP 20; TEMP 35.9; O2SAT 94
--- NOTE | 2023-01-29 08:40 | PM.PNGS ---
Subjective Subjective Date of Service: 01/29/23 Interval history: Patient feels great, reports no abdominal pain. He is tolerating regular diet without nausea or vomiting. Wants to go home. Physical Exam Vital Signs: Vital Signs: Last Vital Signs Temp 96.7 F L 01/29/23 07:40 Pulse 72 01/29/23 07:40 Resp 20 01/29/23 07:40 BP 143/79 H 01/29/23 07:40 Pulse Ox 94 01/29/23 07:40 O2 Del Method Room Air 01/29/23 07:40 BMI result Body Mass Index 31.6 Const: General: comfortable, no acute distress and alert Orientation/consciousness: patient oriented x3 Resp: Effort & Inspection: normal respiratory effort GI: Other: Small amount of scant serous fluid, no bile, no pus, no blood. Inspection: No distended Palpation (GI): Soft to palpation, nontender, no guarding and not rigid Skin: Other: Warm, dry, no rash Neuro: General: patient oriented x3 and moves all extremities Objective Data Active Medications Acetaminophen (Acetaminophen 325 Mg Tablet) 975 mg PO Q6H PRN PRN Reason: Pain, Mild (Pain Scale 1-3) Last Admin: 01/26/23 21:28 Dose: 975 mg Documented By: SIDNEY Docusate Sodium (Docusate Sodium 100 Mg Capsule) 200 mg PO BID [facility] Last Admin: 01/28/23 21:18 Dose: 100 mg Hydromorphone HCl (Hydromorphone Hcl 0.5 Mg/0.5 Ml Syringe) 0.25 mg IVPUSH Q2H PRN; Protocol PRN Reason: Pain, Moderate(Pain Scale 4-6) Last Admin: 01/26/23 17:10 Dose: 0.25 mg Documented By: JASON Piperacillin Sod/Tazobactam (Sod 3.375 gm/ Sodium Chloride) 50 mls @ 100 mls/hr IV Q6H [facility] Last Infusion: 01/29/23 08:17 Dose: 100 mls/hr Documented By: STEPHANIE Ondansetron HCl (Ondansetron Hcl 4 Mg/2 Ml Vial) 4 mg IVPUSH Q8H PRN PRN Reason: Nausea and Vomiting Last Admin: 01/26/23 15:29 Dose: 4 mg Documented By: ESA Oxycodone HCl (Oxycodone Hcl Immed Release 5 Mg Tablet) 5 mg PO Q4H PRN PRN Reason: Pain, Moderate(Pain Scale 4-6) Last Admin: 01/27/23 21:05 Dose: 5 mg Documented By: MINDY Pharmacy Consult (Consult Rx Perform Med Rec) 1 each MISCELLANE ONCE PRN PRN Reason: Consult order Labs 01/26/23 05:46 01/26/23 05:46 Microbiology Microbiology Results: Microbiology 01/26/23 14:00 Gram Stain - Final Abscess Intra-abdominal Routine Culture - Final Escherichia coli Klebsiella oxytoca Procedures Date of Service Date of Service: 01/29/23 Progress Note: A&P Assessment and plan (1) Intra-abdominal abscess post-procedure: Status: Acute (2) S/P laparoscopic cholecystectomy: Status: Acute Plan 63-year-old male patient status post laparoscopic cholecystectomy for gangrenous cholecystitis returning for drainage of abscess in the subhepatic location. He is now much improved with no abdominal pain. IR drain over the last 2 shifts has been minimal with scant serous discharge. No further pus noted. The drain was removed. Patient will be discharged to home on oral antibiotics (Augmentin for 10 days). Patient will follow-up with Dr. Fischer next week but should call sooner for fever, chills, increased abdominal pain or other concerns. He expressed understanding and agrees with the plan. Time Spent With Patient Time: Total time managing care of this patient today ____ minutes. Quality Stroke Does the patient have a stroke diagnosis?: No VTE Prior VTE?: No VTE Risk Level:: Surgical - moderate VTE Device Contraindication: N/A - Device Ordered VTE Drug Contraindication: Treatment Not Indicated
--- NOTE | 2023-01-29 09:04 | MHC.CM.PN ---
DP: PT HAS BEEN MEDICALLY CLEARED FOR DC HOME, NO SERVICES. PT HAS OWN RIDE HOME.
--- NOTE | 2023-01-29 09:04 | PM.DS ---
DS: Providers Provider Date of Service: 01/29/23 Date of admission: 01/25/23 20:33 Date of discharge: 01/29/23 Primary care physician: ANEESH Baxter Admitting clinician: Brandon Fischer Consults: 01/25/23 19:19 Consult to General Surgery Stat Consulting Provider: Rajat Newell Reason for consultation: abscess Attending physician on discharge: Brandon Fischer Discharging clinician: Cedric Hair DS: Diagnosis Discharge Diagnosis (1) Intra-abdominal abscess post-procedure: Status: Acute (2) S/P laparoscopic cholecystectomy: Status: Acute DS: Summary Hospital Course Hospital Course: 63-year-old male patient with a previous history of acute gangrenous cholecystitis status post laparoscopic cholecystectomy on 01/06/[address] Fischer. Patient returns to the office on 01/24/2023 and reported feeling poorly. A CT of the abdomen and pelvis was obtained and revealed a right upper quadrant collection in the subhepatic location consistent with postoperative abscess. Patient reported abdominal pain in the right upper quadrant as well as fever of 99.2. He was subsequently admitted through the emergency department and arrangements made for intervention radiology drainage of the abscess collection. CT-guided drainage was performed on 01/26/2023. A large purulence collection wound was evacuated. Cultures revealed Gram-negative rods on Gram stain. Patient was subsequently treated with Zosyn and gradually advanced to regular diet. This morning the patient feels much improved with no abdominal pain, nausea, vomiting, fever or chills. He is tolerating a regular diet without any increase in abdominal pain. The IR drain was draining purulent material but now is draining scant amount of serous fluid. Drain is subsequently been removed and dry sterile dressings applied. The patient is to be discharged to home. He may remove the dressing in 24 hours and should follow up in the office in approximately 1 week. I have prescribed Augmentin 500 mg t.i.d. for the next 10 days. He should call for any fever, chills, increased abdominal pain, nausea, vomiting, or other concerns. Status at Discharge Functional status at discharge: independent ambulation Overall status at discharge: patient is back to baseline Time Spent with Patient Time attestation: Total time managing care of this patient today ____ minutes. Discharge coordination time: Less than 30 minutes Quality: Safe Use of Opioids Does Pt have an Active Cancer Diagnosis on the Problem List?: No Quality: Stroke Does the patient have a stroke diagnosis?: No Physical Exam Vital Signs: Vital Signs: Last Vital Signs Temp 96.7 F L 01/29/23 07:40 Pulse 72 01/29/23 07:40 Resp 20 01/29/23 07:40 BP 143/79 H 01/29/23 07:40 Pulse Ox 94 01/29/23 07:40 O2 Del Method Room Air 01/29/23 07:40 BMI result Body Mass Index 31.6 Const: General: comfortable, no acute distress and alert Orientation/consciousness: patient oriented x3 Resp: Effort & Inspection: normal respiratory effort GI: Other: Small amount of scant serous fluid, no bile, no pus, no blood. Inspection: No distended Palpation (GI): Soft to palpation, nontender, no guarding and not rigid Skin: Other: Warm, dry, no rash Neuro: General: patient oriented x3 and moves all extremities DS: Data Data Completed and Pending Completed studies during hospitalization [Text1]: Procedures Fluoroscopy of Gallbladder and Bile Ducts using Low Osmolar Contrast (01/05/23) Repair Abdominal Wall, Percutaneous Endoscopic Approach (01/05/23) Resection of Gallbladder, Percutaneous Endoscopic Approach (01/05/23) Labs on day of discharge: Preliminary micro results at discharge 01/25/23 15:43 Blood Culture - Preliminary Blood - Venous No growth after 48 hours. 01/25/23 15:43 Blood Culture - Preliminary Blood - Venous No growth after [address] scan - abdomen: Radiologist's impression: ITS Impressions Chest X-Ray 01/25/23 15:30 IMPRESSION: Unremarkable examination. Abdomen/Pelvis CT 01/25/23 16:38 IMPRESSION: 1. History patient had prior cholecystectomy. There is a fluid collection at the gallbladder fossa which appears to communicate between the hepatic flexure of the colon and the gallbladder fossa. Findings concerning for abscess. 2. Nonobstructive 2 mm stone lower pole right kidney. Fleischner guidelines were followed. This critical result was discussed with ANEESH Durham on 01/25/2023, 6:35 PM and it was ascertained that the content and urgency of the report was understood at the time of direct communication. Abscess Drainage CT 01/26/23 14:51 IMPRESSION: CT-guided 8 [place] gallbladder fossa drain placement. Discharge Plan Discharge Anticipated Discharge Date/Time: 01/29/23 08:38 Patient Disposition: Home Health Service Discharge Diagnosis: intraabdominal abscess Referrals: Kathy Farrell PA [Primary Care Provider] - 1 Week Brandon Fischer MD [Physician] - 1 Week Discharge Medications: New amoxicillin-pot clavulanate [Augmentin] 500-125 mg tablet 1 tab PO Q8H 10 Days Qty: 30 0RF Continued oxycodone 5 mg tablet 5 mg PO Q4H PRN (Reason: Pain) docusate sodium [Colace] 100 mg capsule 100 mg PO BID Qty: 30 0RF Discharge Orders: Discharge Order (Routine); Ordered 01/29/23 Ordered By: Cedric Hair Diet: Advance to usual diet Activity on Discharge: As tolerated Stand Alone Forms: Patient Portal Discharge page Activity Restrictions/Additional Instructions: Follow up in office in a week. ([phone]) Call Your Doctor If: ? ? -Your temperature exceeds 101.5? F? ? ? -You experience excessive pain or swelling ? ? -You have an unexpected reaction to medication ? ? -You experience continued vomiting/nausea Care Plan Goals: Return to baseline health. Abscess resolution and drain removal. Health Concerns: s/p lap ccy for acute gangrenous cholecystitis intraabdominal abscess Plan of Treatment: antibiotics s/p IR drainage, f/u in office Assessment: Improved
== END 2023-01-29 10:03 | disposition home or self-care (01) | DRG 711 ==
LOC: HO.ED 20:47 → HO.EDOVER 20:52 → HO.IMC 01-26 05:32
PROVIDERS: Physician Assistant; Radiology Diagnostic Radiology; Admitting Provider Surgery; Emergency Provider Internal Medicine; PCP Student in an Organized Health Care Education/Training Program; Visit Provider Surgery
PROC: 0W9H3ZZ Drainage of Retroperitoneum, Percutaneous Approach (ICD-10-PCS; principal; 2023-01-26 13:00)
DX: K68.11 Postprocedural retroperitoneal abscess (principal)
CPT/HCPCS: 36415; 71045; 74177; 75989; 80048; 80053; 80076; 81001; 82947; 83036; 83605; 83690; 83735; 84484; 85025; 85610; 87040; 87070; 87077; 87186; 87205; 93005; 99152; 99153; 99285; C1729; J1170; J2405; J2543; J3010; Q9967

== ENCOUNTER 2023-11-25 07:29 | Emergency (ER) | payer BC, SELFPAY ==
[2023-11-25 07:43] VITALS: BP 122/77; PULSE 74; RESP 16; TEMP 36.6; O2SAT 97; BMI 31.9
--- NOTE | 2023-11-25 08:07 | ED_ITS ---
HPI - General Adult General Chief complaint: General Medical Stated complaint: Pain S/P Surgery Last January 2023 Time Seen by Provider: 11/25/23 08:05 Source: patient, RN notes reviewed and old records reviewed Mode of arrival: ambulatory Limitations: no limitations History of Present Illness HPI narrative: 63 yo male with history of acalculous cholecystitis s/p cholecystectomy 01/06/23 who presents to the ER for evaluation of recurrent illnesses for the last several months. He states since his surgery he has not been the same. He reports not feeling right and having multiple bouts of sickness since. He states since the fall he would get sick for 3 days at a time with subjective fevers, chills, head fogginess and fatigue. He has been having to call out of work multiple times. He reports 3 days ago he started not feeling good and had to call out of work yesterday. He has brain fog, fatigue and night sweats. No weight loss, N/V/D, abdominal pain, SOB, chest pain, headache, muscle ache or joint aches. He feels like his illnesses are related to his gallbladder removal. He has ERCP scheduled for next week after having a MRCP at [place] 3 weeks ago. complaint: fatigue, night sweats, Onset (ago): day(s) Location: head Radiation: non-radiation Severity: moderate Quality: aching Relieving factors: rest Exacerbating factors: immobilization Associated symptoms: diaphoresis, fever/chills, loss of appetite, malaise and weakness Treatments prior to arrival: none Related Data Home Medications Medication Instructions Recorded Confirmed oxycodone 5 mg tablet 5 mg PO Q4H PRN Pain 01/25/23 01/25/23 Previous Rx's Medication Instructions Recorded docusate sodium 100 mg capsule 100 mg PO BID #30 caps 01/07/23 (Colace) amoxicillin 500 mg-potassium 1 tab PO Q8H 10 days #30 tabs 01/29/23 clavulanate 125 mg tablet (Augmentin) Allergies Allergy/AdvReac Type Severity Reaction Status Date / Time No Known Allergies Allergy Verified 11/25/23 07:43 Review of Systems 2 Review of Systems: Yes all other systems are reviewed and are negative PMFSH Past Medical History Medical History Torn meniscus Surgical History History of laparoscopic cholecystectomy (01/05/23) History of umbilical hernia repair (01/05/23) Social History Social History Household Members: None Housing: House Do you presently have visiting nurse or other home services: No Alcohol intake: never Comment: transfered to [facility] on days by another rn Patient Tobacco Use Status: Never used Tobacco e-Cigarette/Vaping Use: Never Used Second Hand Smoke Exposure: No Advance Directives: No Advance Directives Information Provided: No service: Yes Current occupational status: employed Physical Exam ED Vital Signs: Vital Signs - 24 hr 11/25/23 07:43 Temperature 98 F Pulse Rate 74 Respiratory Rate 16 Blood Pressure 122/77 Pulse Oximetry 97 Oxygen Delivery Method Room Air BMI result Body Mass Index 31.9 Appearance: Alert. Oriented X3. No acute distress. Head: normocephalic, atraumatic. Eyes: Pupils equal, round and reactive to light. ENT: Pharynx normal. No tonsillar swelling or exudate. Neck: Normal inspection. Neck supple. CVS: Normal heart rate and rhythm. Pulses normal. Respiratory: No respiratory distress. Breath sounds normal. Abdomen: Soft and nontender. +BS x4 Skin: Skin warm and dry. Normal skin color. Normal skin turgor. No rashes. Extremities: No lower extremity edema. No joint swelling. No rashes Neuro/psych: Oriented X 3. No motor deficit. No sensory deficit. CN II-XII intact. Normal speech and cognition. Medical Decision Making Medical Decision Making [facility] Narrative: 63 yo male presenting with vague, recurrent symptoms of illness for several months. Exam unremarkable. labs show mild leukopenia. stable LFTS, abd nontender. viral studies performed given symptoms and are positive for influenza A which explain his symptoms. he has GI f/u next week stable for d/c home with supportive care and outpatient follow up Differential Diagnosis Differential Diagnoses: The differential diagnosis associated with the presentation includes viral syndrome, covid, flu, tick bourne illness, rheumatologic disorder, occult malignancy Lab Data [facility] Lab Attestation statement: I reviewed the patient's lab results. 11/25/23 07:57 11/25/23 07:57 Labs: Lab Results 11/25/23 11/25/23 Range/Units 07:57 08:58 WBC 2.8 L (4.8-10.8) X10*3/uL RBC 4.89 D (4.60-5.80) X10*6/uL Hgb 15.9 D (14.0-18.0) g/dl Hct 45.3 D (42.0-52.0) % MCV 92.6 (80.0-98.0) fL MCH 32.5 (27.0-33.0) pg MCHC 35.1 (31.0-36.0) g/dl RDW 11.6 (11.0-16.0) % Plt Count 182 (160-400) X10*3/uL MPV 8.7 L (9.4-12.4) fL Immature Gran % (Auto) 0.4 (0.0-0.4) % Neut % (Auto) 37.8 L (45-73) % Lymph % (Auto) 39.4 (20-40) % Chambers % (Auto) 15.9 H (2-11) % Eos % (Auto) 5.4 H (0-4) % Baso % (Auto) 1.1 (0-2) % Lymph # (Auto) 1.1 L (1.2-4.9) X10*3/uL Chambers # (Auto) 0.4 (0.1-1.2) X10*3/uL Eos # (Auto) 0.2 (0.0-0.4) X10*3/uL Baso # (Auto) 0.0 (0.0-0.2) X10*3/uL Abs Immat Gran (auto) 0.01 (0.00-0.03) X10*3/uL Absolute Neuts (auto) 1.1 L (2.0-8.3) x10*3/uL Absolute Nucleated RBC 0.000 (0.0-0.012) X10*3/uL Nucleated RBC % (auto) 0.0 (0.0-0.2) /100WBC Sodium 140 (135-145) mmol/L Potassium 4.5 (3.3-5.1) mmol/L Chloride 103 (96-108) mmol/L Carbon Dioxide 29 (22-29) mmol/L Anion Gap 13 (12-20) BUN 20 H (9-16) mg/dL Creatinine 0.87 (0.5-1.4) mg/dL Estim Creat Clear Calc 104.7 Estimated GFR > 60 Random Glucose 120 H (60-115) mg/dL Calcium 9.9 D (8.4-10.2) mg/dL Total Bilirubin 0.4 (0.0-1.0) mg/dL Direct Bilirubin 0.2 (0.0-0.5) mg/dL AST 36 (5-37) U/L ALT 93 H (0-40) U/L Alkaline Phosphatase 139 H (39-117) U/L Total Protein 7.9 (6.5-8.0) g/dL Albumin 4.2 (3.5-5.0) g/dL Lipase 22 (8-78) U/L Influenza Type A (PCR) POSITIVE A (Negative) Influenza Type B (PCR) NEGATIVE (Negative) RSV RNA Qual (PCR) NEGATIVE (Negative) SARS-CoV-2 RNA (RT-PCR) NEGATIVE (Negative) External Record Review External record reviewed: Outpatient record, Prior outpatient labs and Prior outpatient radiology Prescription Management I considered prescription management with: Antiviral and Antibiotic Critical Care Time Critical Care Time Critical Care Time: No Discharge Plan Discharge Clinical Impression: Influenza A Patient Disposition: Home, Self-Care Instructions: Influenza (DC) Additional Instructions: You tested positive for influenza A Your other labs were unremarkable There are no concerns for a bacterial infection today Rest and take over the counter cold/flu medications as needed for your symptoms Recommend following up with your doctor next week Follow up with GI next week for your ERCP If you develop new or worsening symptoms call 911 or come back to the ER for further evaluation. Prescriptions: No Action oxycodone 5 mg tablet 5 mg PO Q4H PRN (Reason: Pain) amoxicillin-pot clavulanate [Augmentin] 500-125 mg tablet 1 tab PO Q8H 10 Days Qty: 30 0RF docusate sodium [Colace] 100 mg capsule 100 mg PO BID Qty: 30 0RF Referrals: Kathy Farrell PA [Primary Care Provider] - Stand Alone Forms: Work/School Release
[2023-11-25 08:10] LABS: MANUAL DIFF FLAG NO
[2023-11-25 08:13] LABS: Basophils Percent Auto 1.1 % (0-2); Eosinophils Absolute Auto 0.2 X10*3/uL (0.0-0.4); Eosinophils Percent Auto 5.4 % (0-4); Hematocrit 45.3 % (42.0-52.0); Hemoglobin 15.9 g/dl (14.0-18.0); Imm Gran Abs Auto 0.01 X10*3/uL (0.00-0.03); Imm Gran Pct Auto 0.4 % (0.0-0.4); Lymphocytes Absolute Auto 1.1 X10*3/uL (1.2-4.9); Lymphocytes Percent Auto 39.4 % (20-40); Mean Corpuscular HGB Conc 35.1 g/dl (31.0-36.0); Mean Corpuscular Hemoglobin 32.5 pg (27.0-33.0); Mean Corpuscular Volume 92.6 fL (80.0-98.0); Mean Platelet Volume 8.7 fL (9.4-12.4); Monocytes Absolute Auto 0.4 X10*3/uL (0.1-1.2); Monocytes Percent Auto 15.9 % (2-11); Neutrophils Absolute Auto 1.1 x10*3/uL (2.0-8.3); Neutrophils Percent Auto 37.8 % (45-73); Platelet Count 182 X10*3/uL (160-400); Red Blood Count 4.89 X10*6/uL (4.60-5.80); Red Cell Distribution Width 11.6 % (11.0-16.0); White Blood Count 2.8 X10*3/uL (4.8-10.8)
[2023-11-25 08:32] LABS: Alanine Aminotransferase 93 U/L (0-40); Albumin Level 4.2 g/dL (3.5-5.0); Alkaline Phosphatase 139 U/L (39-117); Anion Gap 13 (12-20); Aspartate Amino Transferase 36 U/L (5-37); Bilirubin Direct 0.2 mg/dL (0.0-0.5); Bilirubin Total 0.4 mg/dL (0.0-1.0); Blood Urea Nitrogen 20 mg/dL (9-16); Calcium 9.9 mg/dL (8.4-10.2); Carbon Dioxide 29 mmol/L (22-29); Chloride 103 mmol/L (96-108); Creatinine Clr Calc Pharmacy 104.7; Estimated Glomerular Filt Rate > 60; Glucose Random 120 mg/dL (60-115); Lipase 22 U/L (8-78); Potassium 4.5 mmol/L (3.3-5.1); Sodium 140 mmol/L (135-145); Total Protein 7.9 g/dL (6.5-8.0)
[2023-11-25 09:44] LABS: Influenza A PCR POSITIVE (Negative); Influenza B PCR NEGATIVE (Negative); Resp Syncy Virus RNA Qual PCR NEGATIVE (Negative); SARS COV2 PCR INHOUSE NEGATIVE (Negative)
[2023-11-25 10:30] VITALS: BP 133/73; PULSE 71; RESP 18; TEMP -17.7; TEMP 0; O2SAT 0
== END 2023-11-25 11:00 | disposition home or self-care (01) ==
PROVIDERS: Physician Assistant; Emergency Provider Emergency Medicine; PCP Student in an Organized Health Care Education/Training Program
DX: J10.1 Influenza due to other identified influenza virus with other respiratory manifestations (principal); Z11.52 Encounter for screening for COVID-19; Z20.828 Contact with and (suspected) exposure to other viral communicable diseases
CPT/HCPCS: 0241U; 36415; 80053; 82248; 83690; 85025; 99283